=== PATIENT | female | born 1940 | race Caucasian/White ===

== ENCOUNTER 2019-05-18 15:45 | Outpatient (CLI) | payer MEDICARE, MEDICAID | END 2019-05-18 15:46 | disposition short-term general hospital (02) | LOC: EMS 15:45 | PROVIDERS: ATTEND Surgery | DX: R07.9 Chest pain, unspecified (principal); R06.02 Shortness of breath; R11.0 Nausea; R61 Generalized hyperhidrosis | CPT/HCPCS: A0425; A0427 ==

== ENCOUNTER 2019-05-29 03:15 | Emergency (ER) | payer MEDICARE, MEDICAID ==
--- NOTE | 2019-05-29 03:48 | ED Physician Documentation ---
PD HPI DYSPNEA - Stated complaint Stated Complaint: CP/SOA - Chief complaint Chief Complaint: Resp - History obtained from History obtained from: Patient, EMS - History of Present Illness Timing - onset: Yesterday Timing - onset during: Rest Pain level now: 2 Improved by: O2, Inhaler/neb (given en route by medics (duoneb)), Rest Worsened by: Exertion, Coughing Associated symptoms: Cough, Wheezing, Chest pain / discomfort (distinctly related to coughing (only with coughing)). No: Fever Recently seen: Admitted (inpatient at [facility] earlier this month for chest pain, found to be anemic and was transfused. patient does not recall these details, but I was able to have records faxed from [facility] (they only faxed intake)) - Additional information Additional information: Patient is brought in by ambulance. Patient complains of dyspnea with increasing cough that has been productive of yellow sputum. This has been gradually worsening since yesterday. She also describes brief episodes of midline chest pain, which she says is only present when she coughs. Medics found patient to have a pulse ox of 94% on room air on their arrival, which increased to 98% with duoneb. staff at [facility] gave patient 325mg ASA prior to EMS arrival. Review of Systems Constitutional: denies: Fever, Chills, Sweats Cardiac: reports: Chest pain / pressure. denies: Palpitations, Pedal edema Respiratory: reports: Dyspnea, Cough, Wheezing. denies: Hemoptysis GI: reports: Reviewed and negative : denies: Dysuria, Frequency Musculoskeletal: denies: Back pain Neurologic: denies: Generalized weakness, Headache PD PAST MEDICAL HISTORY - Past Medical History Past Medical History: Yes Cardiovascular: Hypertension, High cholesterol, Coronary artery disease, [place], Atrial fibrillation Respiratory: Asthma, COPD Neuro: Dementia Endocrine/Autoimmune: HyPOthyroidism GI: Hiatal hernia : Incontinence HEENT: None Psych: Depression Musculoskeletal: Osteoarthritis, Fibromyalgia, Other Derm: None Other Past Medical History: spinal stenosis - Present Medications Home Medications: Ambulatory Orders Medication Instructions Recorded Confirmed Acetaminophen [Tylenol] 325 mg PO PRN PRN 05/29/19 05/29/19 Albuterol Sulf [Ventolin Hfa 1 - 2 puffs INH Q4HR PRN #1 inhaler 05/29/19 Inhaler] Apixaban [Eliquis] 5 mg PO BID 05/29/19 05/29/19 Budesonide/Formoterol Fumarate 2 puffs INH BID 05/29/19 05/29/19 [Symbicort 160-4.5 Mcg Inhaler] Calcium Carbonate [Tums (Calcium 1,000 mg PO BID PRN 05/29/19 05/29/19 Carbonate 500mg)] Famotidine 20 mg PO BID 05/29/19 05/29/19 Levothyroxine [Synthroid] 25 mg PO DAILY 05/29/19 05/29/19 Metoprolol Succinate 25 mg PO DAILY 05/29/19 05/29/19 Oxybutynin Chloride [Ditropan Xl] 10 mg PO DAILY 05/29/19 05/29/19 Pregabalin 75 mg PO BID 05/29/19 05/29/19 Sennosides [Senna Laxative] 8.6 mg PO BID PRN 05/29/19 05/29/19 Simvastatin 10 mg PO QPM 05/29/19 05/29/19 Umeclidinium [place] [Incruse 1 puffs INH DAILY 05/29/19 05/29/19 Ellipta] Venlafaxine HCl [Venlafaxine HCl 225 mg PO DAILY 05/29/19 05/29/19 ER] predniSONE [Prednisone] 40 mg PO DAILY 3 Days #6 tablet 05/29/19 - Allergies Allergies/Adverse Reactions: Allergies Allergy/AdvReac Type Severity Reaction Status Date / Time adhesive Allergy Unknown Verified 05/29/19 03:52 alendronate sodium Allergy Unknown Verified 05/29/19 04:06 cephalexin Allergy Unknown Verified 05/29/19 04:06 chlorhexidine Allergy Unknown Verified 05/29/19 04:06 ciprofloxacin [From Cipro] Allergy Unknown Verified 05/29/19 04:06 erythromycin base Allergy Unknown Verified 05/29/19 04:06 ether Allergy Unknown Verified 05/29/19 04:06 fentanyl Allergy Unknown Verified 05/29/19 04:06 hydromorphone Allergy Unknown Verified 05/29/19 04:06 Iodinated Contrast Media Allergy Unknown Verified 05/29/19 03:52 methadone Allergy Unknown Verified 05/29/19 04:06 nitrofurantoin Allergy Unknown Verified 05/29/19 04:06 Penicillins Allergy Unknown Verified 05/29/19 03:52 strawberry Allergy Unknown Verified 05/29/19 04:06 Sulfa (Sulfonamide Allergy Unknown Verified 05/29/19 04:06 Antibiotics) zolpidem Allergy Unknown Verified 05/29/19 04:06 streptomycin AdvReac Unknown Verified 05/29/19 04:08 Norflurane-Pentaflouropropane Allergy Unknown Uncoded 05/29/19 04:08 - Social History Does the pt smoke?: No Smoking Status: Former smoker Does the pt drink ETOH?: No Does the pt have substance abuse?: No - Immunizations Immunizations are current?: No Immunizations: TDAP >10years/unknown PD ED PE NORMAL - Vitals Vital signs reviewed: Yes - General General: Alert and oriented X 3, No acute distress, Well developed/nourished - HEENT HEENT: Moist mucous membranes - Neck Neck: Supple, no meningeal sign - Cardiac Cardiac: RRR, No murmur - Respiratory Respiratory: No respiratory distress - Abdomen Abdomen: Soft, Non tender, Other (soft, nontender umbilical hernia) - Derm Derm: Normal color, Warm and dry - Extremities Extremities: No edema PD ED PE EXPANDED - Respiratory Respiratory: Rhonchi (initially had scattered course rhonchi but these cleared with deep coughing and subsequently her lungs were clear bilaterally, mildly decreased breath sounds bilateral bases) Results - Vitals Vitals: Oxygen O2 Source Room air - EKG (time done) No standard instances Rate: Rate (enter#) (76) Rhythm: NSR [place]: Normal Intervals: Normal CT QRS: Normal Ischemia: Normal ST segments - Labs Labs: Laboratory Tests 05/29/19 05/29/19 05/29/19 03:15 03:15 04:15 WBC 12.8 H RBC 3.51 L Hgb 10.1 L Hct 32.2 L MCV 91.7 MCH 28.8 MCHC 31.4 L RDW 15.6 H Plt Count 219 MPV 10.2 Neut # (Auto) 7.9 H Lymph # (Auto) 3.4 [place] # (Auto) 1.1 H Eos # (Auto) 0.3 Baso # (Auto) 0.1 Absolute Nucleated RBC 0.00 Nucleated RBC % 0.0 PT 16.6 H INR 1.5 H APTT 57.0 H Sodium 141 Potassium 3.9 Chloride 108 Carbon Dioxide 23 Anion Gap 10.0 BUN 34 H Creatinine 0.9 Estimated GFR (MDRD) 61 L Glucose 109 H Calcium 9.2 Magnesium 2.3 Total Bilirubin 0.4 AST 26 ALT 26 Alkaline Phosphatase 66 Troponin I High Sens B-Natriuretic Peptide Total Protein 7.1 Albumin 3.7 Globulin 3.4 Albumin/Globulin Ratio 1.1 Lipase 37 Urine Color Urine Clarity Urine pH Ur Specific [place] Urine Protein Urine Glucose (UA) Urine Ketones Urine Occult Blood Urine Nitrite Urine Bilirubin Urine Urobilinogen Ur Leukocyte Esterase Urine RBC Urine WBC Ur Squamous Epith Cells Urine Bacteria Ur Microscopic Review Urine Culture Comments 05/29/19 05/29/19 05/29/19 04:15 04:19 04:40 WBC RBC Hgb Hct MCV MCH MCHC RDW Plt Count MPV Neut # (Auto) Lymph # (Auto) [place] # (Auto) Eos # (Auto) Baso # (Auto) Absolute Nucleated RBC Nucleated RBC % PT INR APTT Sodium Potassium Chloride Carbon Dioxide Anion Gap BUN Creatinine Estimated GFR (MDRD) Glucose Calcium Magnesium Total Bilirubin AST ALT Alkaline Phosphatase Troponin I High Sens 4.4 B-Natriuretic Peptide 85 Total Protein Albumin Globulin Albumin/Globulin Ratio Lipase Urine Color YELLOW Urine Clarity CLEAR Urine pH 6.0 Ur Specific [place] 1.020 Urine Protein NEGATIVE Urine Glucose (UA) NEGATIVE Urine Ketones NEGATIVE Urine Occult Blood SMALL H Urine Nitrite NEGATIVE Urine Bilirubin NEGATIVE Urine Urobilinogen 0.2 (NORMAL) Ur Leukocyte Esterase NEGATIVE Urine RBC 0-5 Urine WBC 0-3 Ur Squamous Epith Cells RARE Squamous Urine Bacteria Rare Ur Microscopic Review INDICATED Urine Culture Comments NOT INDICATED - Rads (name of study) chest xray Radiology: Prelim report reviewed, See rad report PD MEDICAL DECISION MAKING - ED course Complexity details: reviewed old records, reviewed results, re-evaluated patient, considered differential, d/w patient ED course: gradually improved during ED stay, with less subjective dyspnea (not in any respiratory distress on exam) and significantly less cough. she declined robitussin AC, says she doesnt want any medications that have addiction potential. she is in NAD and speaking in full sentences prior to discharge. test results are reassuring and do not reveal nor suggest need for further testing nor admission. suspect bronchitis causing asthma/COPE flare (bronchospasm) Departure - Departure Disposition: 01 Home, Self Care Clinical Impression: Bronchitis with bronchospasm Condition: Good Instructions: ED Bronchitis Asthmatic Prescriptions: Albuterol Sulf [Ventolin Hfa Inhaler] 1 - 2 puffs INH Q4HR PRN #1 inhaler PRN Reason: Shortness Of Air/Wheezing predniSONE [Prednisone] 40 mg PO DAILY 3 Days #6 tablet Discharge Date/Time: 05/29/19 11:01
[2019-05-29 04:33] LABS: BASOPHILS # (AUTO) 0.1 10^3/uL (0.0-0.1); BASOPHILS % (AUTO) 0.6 %; EOSINOPHILS # (AUTO) 0.3 10^3/uL (0.0-0.7); HGB - HEMOGLOBIN 10.1 g/dL (12.0-16.0); LYMPHOCYTES # (AUTO) 3.4 10^3/uL (1.5-3.5); LYMPHOCYTES % (AUTO) 26.5 %; MEAN CORPUSCULAR HEMOGLOBIN 28.8 pg (27.0-31.0); MEAN CORPUSCULAR HGB CONC 31.4 g/dL (32.0-36.0); MEAN CORPUSCULAR VOLUME 91.7 fL (81.0-99.0); MEAN PLATELET VOLUME 10.2 fL (7.9-10.8); MONOCYTES # (AUTO) 1.1 10^3/uL (0.0-1.0); MONOCYTES % (AUTO) 8.5 %; NEUTROPHILS # (AUTO) 7.9 10^3/uL (1.5-6.6); NEUTROPHILS % (AUTO) 61.9 %; PLT - PLATELET COUNT 219 10^3/uL (130-450); RED BLOOD COUNT 3.51 10^6/uL (4.20-5.40); RED CELL DISTRIBUTION WIDTH 15.6 % (12.0-15.0); WHITE BLOOD COUNT 12.8 x10^3/uL (4.8-10.8)
[2019-05-29 04:35] LABS: INR 1.5 (0.8-1.2); PT - PROTHROMBIN TIME 16.6 secs (9.9-12.6)
--- NOTE | 2019-05-29 04:45 | XRAY Report ---
Reason: cough, dyspnea Procedure Date: 05/29/2019 Accession Number: [id number] / [id number] Procedure: XR - Chest 2 View X-Ray CPT Code: 51465 FULL RESULT: EXAM: CHEST RADIOGRAPHY EXAM DATE: 05/29/2019 04:34 AM. CLINICAL HISTORY: Cough, dyspnea. COMPARISON: None. TECHNIQUE: 2 views. FINDINGS: Lungs/Pleura: No focal opacities evident. No pulmonary edema. No pleural effusion. No pneumothorax. Mild to moderate elevation of right hemidiaphragm. Mediastinum: Heart and mediastinal contours are unremarkable. Atherosclerosis of aortic arch. Other: Implanted medical research associate with lead tip projecting at right mediastinum. IMPRESSION: 1. No evidence of acute cardiopulmonary process. 2. Mild to moderate elevation of right hemidiaphragm. RADIA
[2019-05-29 04:51] LABS: ALBUMIN 3.7 g/dL (3.2-5.5); ALBUMIN/GLOBULIN RATIO 1.1 (1.0-2.2); BILIRUBIN,TOTAL 0.4 mg/dL (0.2-1.0); CALCIUM 9.2 mg/dL (8.5-10.3); CREATININE 0.9 mg/dL (0.4-1.0); MAGNESIUM 2.3 mg/dL (1.7-2.8); TOTAL PROTEIN 7.1 g/dL (6.7-8.2)
[2019-05-29] MEDS ORDERED: DEXAMETHASONE 10 MG/ML VIAL IVP STA (05:08)
[2019-05-29] MEDS ORDERED: ALBUTEROL NEB 2.5 MG/3 ML INH STA (05:12)
[2019-05-29] MEDS ORDERED: KETOROLAC 15 MG/ML VIAL IVP STA (05:13)
[2019-05-29 05:35] LABS: BILIRUBIN,URINE NEGATIVE (NEGATIVE); GLUCOSE, URINE (UA) NEGATIVE (NEGATIVE); KETONES,URINE (UA) NEGATIVE (NEGATIVE); LEUKOCYTE ESTERASE, URINE NEGATIVE (NEGATIVE); NITRITE,URINE NEGATIVE (NEGATIVE); OCCULT BLOOD,URINE SMALL (NEGATIVE); PROTEIN,URINE NEGATIVE (NEGATIVE); UROBILINOGEN,URINE 0.2 (NORMAL) E.U./dL (NORMAL)
[2019-05-29 05:46] LABS: CLARITY,URINE CLEAR (CLEAR); RBC,URINE 0-5 /HPF (0-5); SQUAMOUS EPITHELIAL CELL,UR RARE Squamous (<= Few)
[2019-05-29 05:47] LABS: BACTERIA,URINE Rare /HPF (None Seen)
[2019-05-29 10:08] VITALS: BP 107/44
== END 2019-05-29 11:01 | disposition home or self-care (01) ==
LOC: EDUNIT# → ED 03:15
DX: J20.9 Acute bronchitis, unspecified (principal); J44.0 Chronic obstructive pulmonary disease with (acute) lower respiratory infection; Z87.891 Personal history of nicotine dependence; K42.9 Umbilical hernia without obstruction or gangrene; I10 Essential (primary) hypertension; I48.91 Unspecified atrial fibrillation; Z79.01 Long term (current) use of anticoagulants; I25.10 Atherosclerotic heart disease of native coronary artery without angina pectoris; I25.2 Old myocardial infarction; F03.90 Unspecified dementia, unspecified severity, without behavioral disturbance, psychotic disturbance, mood disturbance, and anxiety
CPT/HCPCS: 36415; 71046; 80053; 81001; 81003; 83605; 83690; 83735; 83880; 84484; 85025; 85610; 85730; 87086; 93005; 94640; 96374; 99284

== ENCOUNTER 2019-07-01 17:26 | Outpatient (CLI) | payer MEDICARE, MEDICAID | END 2019-07-01 17:27 | disposition critical access hospital (66) | LOC: EMS 17:26 | PROVIDERS: ATTEND Surgery | DX: R46.89 Other symptoms and signs involving appearance and behavior (principal) | CPT/HCPCS: A0425; A0429 ==

== ENCOUNTER 2019-07-01 17:46 | Emergency (ER) | payer MEDICARE, MEDICAID ==
[2019-07-01] MEDS ORDERED: ACETAMINOPHEN 325 MG TABLET PO STA (18:02)
--- NOTE | 2019-07-01 18:04 | ED Physician Documentation ---
History of Present Illness - Stated complaint Stated Complaint: MHE - History obtained from History obtained from: Patient - History of Present Illness Timing: Today (78-year-old woman presents from [facility] assisted living facility. Reportedly became aggressive with staff there today and kicked to people. Her story is that she became agitated because they were not taking good care of some other folks there and admits to doing this. She is a reasonable historian but not great. It is clear there is some elements of dementia going on. She has no specific complaints other than ongoing back pain for which she would like something. When I asked her if she has any places to go other than [facility], she says she could go live with her parents, her age makes this questionable. I do not know if they are actually alive.) Review of Systems Unable to obtain: Dementia PD PAST MEDICAL HISTORY - Past Medical History Cardiovascular: Hypertension, High cholesterol, Coronary artery disease, [place], Atrial fibrillation Respiratory: Asthma, COPD Neuro: Dementia Endocrine/Autoimmune: HyPOthyroidism GI: Hiatal hernia : Incontinence HEENT: None Psych: Depression Musculoskeletal: Osteoarthritis, Fibromyalgia, Other Derm: None - Present Medications Home Medications: Ambulatory Orders Medication Instructions Recorded Confirmed Acetaminophen [Tylenol] 325 mg PO PRN PRN 05/29/19 05/29/19 Albuterol Sulf [Ventolin Hfa 1 - 2 puffs INH Q4HR PRN #1 inhaler 05/29/19 Inhaler] Apixaban [Eliquis] 5 mg PO BID 05/29/19 05/29/19 Budesonide/Formoterol Fumarate 2 puffs INH BID 05/29/19 05/29/19 [Symbicort 160-4.5 Mcg Inhaler] Calcium Carbonate [Tums (Calcium 1,000 mg PO BID PRN 05/29/19 05/29/19 Carbonate 500mg)] Famotidine 20 mg PO BID 05/29/19 05/29/19 Levothyroxine [Synthroid] 25 mg PO DAILY 05/29/19 05/29/19 Metoprolol Succinate 25 mg PO DAILY 05/29/19 05/29/19 Oxybutynin Chloride [Ditropan Xl] 10 mg PO DAILY 05/29/19 05/29/19 Pregabalin 75 mg PO BID 05/29/19 05/29/19 Sennosides [Senna Laxative] 8.6 mg PO BID PRN 05/29/19 05/29/19 Simvastatin 10 mg PO QPM 05/29/19 05/29/19 Umeclidinium [place] [Incruse 1 puffs INH DAILY 05/29/19 05/29/19 Ellipta] Venlafaxine HCl [Venlafaxine HCl 225 mg PO DAILY 05/29/19 05/29/19 ER] predniSONE [Prednisone] 40 mg PO DAILY 3 Days #6 tablet 05/29/19 Haloperidol [Haldol] 2 mg PO Q8H PRN #60 tablet 07/01/19 risperiDONE [RisperDAL] 0.25 mg PO HS #30 tablet 07/01/19 - Allergies Allergies/Adverse Reactions: Allergies Allergy/AdvReac Type Severity Reaction Status Date / Time adhesive Allergy Unknown Verified 07/01/19 18:10 alendronate sodium Allergy Unknown Verified 07/01/19 18:10 cephalexin Allergy Unknown Verified 07/01/19 18:10 chlorhexidine Allergy Unknown Verified 07/01/19 18:10 ciprofloxacin [From Cipro] Allergy Unknown Verified 07/01/19 18:10 erythromycin base Allergy Unknown Verified 07/01/19 18:10 ether Allergy Unknown Verified 07/01/19 18:10 fentanyl Allergy Unknown Verified 07/01/19 18:10 hydromorphone Allergy Unknown Verified 07/01/19 18:10 Iodinated Contrast Media Allergy Unknown Verified 07/01/19 18:10 methadone Allergy Unknown Verified 07/01/19 18:10 nitrofurantoin Allergy Unknown Verified 07/01/19 18:10 Penicillins Allergy Unknown Verified 07/01/19 18:10 strawberry Allergy Unknown Verified 07/01/19 18:10 Sulfa (Sulfonamide Allergy Unknown Verified 07/01/19 18:10 Antibiotics) zolpidem Allergy Unknown Verified 07/01/19 18:10 streptomycin AdvReac Unknown Verified 07/01/19 18:10 Norflurane-Pentaflouropropane Allergy Unknown Uncoded 07/01/19 18:10 - Social History Does the pt smoke?: No Smoking Status: Former smoker Does the pt drink ETOH?: No Does the pt have substance abuse?: No - Immunizations Immunizations are current?: No Immunizations: TDAP >10years/unknown PD ED PE NORMAL - Vitals Vital signs reviewed: Yes - General General: Other (She is alert and oriented to person, she knows she is in the hospital and seems to have some recollection of why. She cannot come up with the month or the year.) - HEENT HEENT: PERRL, EOMI - Neck Neck: Supple, no meningeal sign, No bony TTP - Cardiac Cardiac: RRR, No murmur - Respiratory Respiratory: No respiratory distress, Clear bilaterally - Abdomen Abdomen: Normal bowel sounds, Soft, Non tender - Back Back: No CVA TTP, No spinal TTP - Derm Derm: Normal color, Warm and dry - Extremities Extremities: No edema, No calf tenderness / cord - Neuro Neuro: No motor deficit, No sensory deficit Eye Opening: Spontaneous Motor: Obeys Commands Verbal: Confused GCS Score: 14 Results - Vitals Vitals: Vital Signs - 24 hr 07/01/19 18:03 Temperature 37.0 C Heart Rate 91 Respiratory 20 Rate Blood Pressure 123/68 O2 Saturation 96 Oxygen O2 Source Room air - EKG (time done) 1818 Rate: Rate (enter#) (88) Rhythm: NSR [place]: Normal Intervals: Normal [place] QRS: Normal Ischemia: Normal ST segments - Labs Labs: Laboratory Tests 07/01/19 07/01/19 07/01/19 18:21 18:21 18:21 WBC 9.6 RBC 4.03 L Hgb 11.3 L Hct 36.3 L MCV 90.1 MCH 28.0 MCHC 31.1 L RDW 15.8 H Plt Count 236 MPV 9.5 Neut # (Auto) 6.2 Lymph # (Auto) 1.7 [place] # (Auto) 1.2 H Eos # (Auto) 0.4 Baso # (Auto) 0.1 Absolute Nucleated RBC 0.00 Nucleated RBC % 0.0 PT 18.2 H INR 1.6 H Sodium 139 Potassium 3.9 Chloride 103 Carbon Dioxide 24 Anion Gap 12.0 BUN 21 H Creatinine 0.9 Estimated GFR (MDRD) 61 L Glucose 92 Calcium 9.1 Magnesium 2.5 Total Bilirubin 0.3 AST 29 ALT 22 Alkaline Phosphatase 88 Total Protein 8.0 Albumin 4.2 Globulin 3.8 Albumin/Globulin Ratio 1.1 Lipase 32 TSH Urine Color Urine Clarity Urine pH Ur Specific [place] Urine Protein Urine Glucose (UA) Urine Ketones Urine Occult Blood Urine Nitrite Urine Bilirubin Urine Urobilinogen Ur Leukocyte Esterase Urine RBC Urine WBC Ur Squamous Epith Cells Urine Bacteria Ur Microscopic Review Urine Culture Comments Salicylates < 6.0 Urine Opiates Screen Ur Oxycodone Screen Urine Methadone Screen Ur Propoxyphene Screen Acetaminophen < 10 L Ur Barbiturates Screen Ur Tricyclics Screen Ur Phencyclidine Scrn Ur Amphetamine Screen U Methamphetamines Scrn U Benzodiazepines Scrn Urine Cocaine Screen U Cannabinoids Screen Ethyl Alcohol < 5.0 07/01/19 07/01/19 07/01/19 18:21 18:40 18:45 WBC RBC Hgb Hct MCV MCH MCHC RDW Plt Count MPV Neut # (Auto) Lymph # (Auto) [place] # (Auto) Eos # (Auto) Baso # (Auto) Absolute Nucleated RBC Nucleated RBC % PT INR Sodium Potassium Chloride Carbon Dioxide Anion Gap BUN Creatinine Estimated GFR (MDRD) Glucose Calcium Magnesium Total Bilirubin AST ALT Alkaline Phosphatase Total Protein Albumin Globulin Albumin/Globulin Ratio Lipase TSH 3.40 Urine Color YELLOW Urine Clarity CLEAR Urine pH 6.0 Ur Specific [place] 1.010 Urine Protein NEGATIVE Urine Glucose (UA) NEGATIVE Urine Ketones NEGATIVE Urine Occult Blood SMALL H Urine Nitrite NEGATIVE Urine Bilirubin NEGATIVE Urine Urobilinogen 0.2 (NORMAL) Ur Leukocyte Esterase NEGATIVE Urine RBC 0-5 Urine WBC 0-3 Ur Squamous Epith Cells FEW Squamous Urine Bacteria None Seen Ur Microscopic Review INDICATED Urine Culture Comments NOT INDICATED Salicylates Urine Opiates Screen NEGATIVE Ur Oxycodone Screen NEGATIVE Urine Methadone Screen NEGATIVE Ur Propoxyphene Screen NEGATIVE Acetaminophen Ur Barbiturates Screen NEGATIVE Ur Tricyclics Screen NEGATIVE Ur Phencyclidine Scrn NEGATIVE Ur Amphetamine Screen NEGATIVE U Methamphetamines Scrn NEGATIVE U Benzodiazepines Scrn POSITIVE H Urine Cocaine Screen NEGATIVE U Cannabinoids Screen NEGATIVE Ethyl Alcohol PD MEDICAL DECISION MAKING - ED course ED course: She was very cooperative and pleasant here, required no medication here. Tele- psychiatry evaluation was done with outlined recommendations. Departure - Departure Disposition: 01 Home, Self Care Clinical Impression: Dementia with behavioral disturbance Qualifiers: Dementia type: Alzheimer's disease Alzheimer's disease onset: unspecified onset Qualified Code(s): G30.9 - Alzheimer's disease, unspecified; F02.81 - Dementia in other diseases classified elsewhere with behavioral disturbance Instructions: ED Dementia Alzheimer, ED Dementia Caregiver Support Prescriptions: Haloperidol [Haldol] 2 mg PO Q8H PRN #60 tablet PRN Reason: Agitation risperiDONE [RisperDAL] 0.25 mg PO HS #30 tablet Comments: Tele psychiatrist saw her tonight and recommended Risperdal was 0.25 mg at night and Haldol, 2 mg every 8 hours as needed for agitation. We gave her the Resporal tonight. Prescriptions for both are attached as well. Return anytime for new or worsening symptoms. She needs to follow-up with her primary care physician as soon as possible for recheck and refills.
[2019-07-01 18:10] VITALS: BP 123/68
[2019-07-01 18:25] LABS: BASOPHILS # (AUTO) 0.1 10^3/uL (0.0-0.1); BASOPHILS % (AUTO) 0.8 %; EOSINOPHILS # (AUTO) 0.4 10^3/uL (0.0-0.7); EOSINOPHILS % (AUTO) 3.9 %; HGB - HEMOGLOBIN 11.3 g/dL (12.0-16.0); LYMPHOCYTES # (AUTO) 1.7 10^3/uL (1.5-3.5); LYMPHOCYTES % (AUTO) 17.3 %; MEAN CORPUSCULAR HGB CONC 31.1 g/dL (32.0-36.0); MEAN CORPUSCULAR VOLUME 90.1 fL (81.0-99.0); MEAN PLATELET VOLUME 9.5 fL (7.9-10.8); MONOCYTES # (AUTO) 1.2 10^3/uL (0.0-1.0); MONOCYTES % (AUTO) 12.7 %; NEUTROPHILS # (AUTO) 6.2 10^3/uL (1.5-6.6); NEUTROPHILS % (AUTO) 64.6 %; PLT - PLATELET COUNT 236 10^3/uL (130-450); RED BLOOD COUNT 4.03 10^6/uL (4.20-5.40); RED CELL DISTRIBUTION WIDTH 15.8 % (12.0-15.0); WHITE BLOOD COUNT 9.6 x10^3/uL (4.8-10.8)
[2019-07-01 18:32] LABS: INR 1.6 (0.8-1.2); PT - PROTHROMBIN TIME 18.2 secs (9.9-12.6)
[2019-07-01 18:43] LABS: ACETAMINOPHEN < 10 ug/mL (10-30); ALBUMIN 4.2 g/dL (3.2-5.5); ALBUMIN/GLOBULIN RATIO 1.1 (1.0-2.2); ALKALINE PHOSPHATASE 88 IU/L (42-121); ALT ALANINE AMINOTRANSFERASE 22 IU/L (10-60); AST ASPARTATE AMINOTRANSFERASE 29 IU/L (10-42); BILIRUBIN,TOTAL 0.3 mg/dL (0.2-1.0); BUN - BLOOD UREA NITROGEN 21 mg/dL (6-20); CALCIUM 9.1 mg/dL (8.5-10.3); CARBON DIOXIDE - CO2 24 mmol/L (21-32); CHLORIDE 103 mmol/L (101-111); CREATININE 0.9 mg/dL (0.4-1.0); GFR - MDRD 61 (>89); GLUCOSE 92 mg/dL (70-100); LIPASE 32 U/L (22-51); MAGNESIUM 2.5 mg/dL (1.7-2.8); SALICYLATE < 6.0 mg/dL; SODIUM 139 mmol/L (135-145)
[2019-07-01 18:55] LABS: MUDS CUTOFF CONCENTRATIONS CUTOFF CONC BELOW:
[2019-07-01 19:08] LABS: AMPHETAMINE SCREEN,URINE NEGATIVE (NEGATIVE); BENZODIAZEPINES SCREEN, URINE POSITIVE (NEGATIVE); COCAINE SCREEN URINE NEGATIVE (NEGATIVE); METHADONE SCREEN, URINE NEGATIVE (NEGATIVE); METHAMPHETAMINES SCREEN, URINE NEGATIVE (NEGATIVE); OPIATE SCREEN, URINE NEGATIVE (NEGATIVE); OXYCODONE SCREEN, URINE NEGATIVE (NEGATIVE); PROPOXYPHENE SCREEN, URINE NEGATIVE (NEGATIVE); TRICYCLIC ANTIDEPRESSANT,URINE NEGATIVE (NEGATIVE)
[2019-07-01 19:37] LABS: BILIRUBIN,URINE NEGATIVE (NEGATIVE); GLUCOSE, URINE (UA) NEGATIVE (NEGATIVE); KETONES,URINE (UA) NEGATIVE (NEGATIVE); LEUKOCYTE ESTERASE, URINE NEGATIVE (NEGATIVE); NITRITE,URINE NEGATIVE (NEGATIVE); OCCULT BLOOD,URINE SMALL (NEGATIVE); PROTEIN,URINE NEGATIVE (NEGATIVE); UROBILINOGEN,URINE 0.2 (NORMAL) E.U./dL (NORMAL)
[2019-07-01 19:38] LABS: CLARITY,URINE CLEAR (CLEAR)
[2019-07-01 19:49] LABS: BACTERIA,URINE None Seen /HPF (None Seen); RBC,URINE 0-5 /HPF (0-5); SQUAMOUS EPITHELIAL CELL,UR FEW Squamous (<= Few)
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
[2019-07-01] MEDS ORDERED: risperiDONE 0.25 MG TABLET PO STA (22:41)
== END 2019-07-02 00:07 | disposition home or self-care (01) ==
LOC: EDUNIT# → ED 17:46
DX: G30.9 Alzheimer's disease, unspecified (principal); F02.81 Dementia in other diseases classified elsewhere, unspecified severity, with behavioral disturbance; I10 Essential (primary) hypertension; I48.91 Unspecified atrial fibrillation; Z79.01 Long term (current) use of anticoagulants; Z87.891 Personal history of nicotine dependence
CPT/HCPCS: 36415; 80053; 81001; 83690; 83735; 84443; 85025; 85610; 93005; 99281; 99283; A9270; G0425; 80306; 80307; 80320; 80329; 81003; 87086

== ENCOUNTER 2019-07-02 00:10 | Outpatient (CLI) | payer MEDICARE, MEDICAID | END 2019-07-02 00:11 | disposition home or self-care (01) | LOC: EMS 00:10 | PROVIDERS: ATTEND Surgery | DX: F03.90 Unspecified dementia, unspecified severity, without behavioral disturbance, psychotic disturbance, mood disturbance, and anxiety (principal) | CPT/HCPCS: A0425; A0428 ==

== ENCOUNTER 2019-07-16 08:00 | Outpatient (CLI) | payer MEDICARE, MEDICAID ==
[2019-07-16 17:15] LABS: BILIRUBIN,URINE NEGATIVE (NEGATIVE); GLUCOSE, URINE (UA) NEGATIVE (NEGATIVE); KETONES,URINE (UA) NEGATIVE (NEGATIVE); LEUKOCYTE ESTERASE, URINE NEGATIVE (NEGATIVE); NITRITE,URINE NEGATIVE (NEGATIVE); OCCULT BLOOD,URINE MODERATE (NEGATIVE); PROTEIN,URINE TRACE mg/dL (NEGATIVE); UROBILINOGEN,URINE 0.2 (NORMAL) E.U./dL (NORMAL)
[2019-07-16 17:19] LABS: CLARITY,URINE HAZY (CLEAR)
[2019-07-16 17:36] LABS: AMORPHOUS SEDIMENT,UR Rare /LPF; BACTERIA,URINE Rare /HPF (None Seen); RBC,URINE 0-5 /HPF (0-5); SQUAMOUS EPITHELIAL CELL,UR FEW Squamous (<= Few)
== END 2019-07-16 23:59 | disposition home or self-care (01) ==
LOC: LAB.R 08:00
PROVIDERS: ATTEND Internal Medicine
DX: N39.0 Urinary tract infection, site not specified (principal)
CPT/HCPCS: 81001; 81003; 87086

== ENCOUNTER 2019-07-18 15:34 | Outpatient (CLI) | payer MEDICARE, MEDICAID | END 2019-07-18 15:35 | disposition critical access hospital (66) | LOC: EMS 15:34 | PROVIDERS: ATTEND Surgery | DX: R41.0 Disorientation, unspecified (principal); R52 Pain, unspecified | CPT/HCPCS: A0425; A0429 ==

== ENCOUNTER 2019-07-18 15:56 | Emergency (ER) | payer MEDICARE, MEDICAID ==
[2019-07-18 16:05] VITALS: BP 134/54
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
[2019-07-18] MEDS: risperiDONE 0.25 MG TABLET PO STA (16:11)
== END 2019-07-18 18:17 | disposition home or self-care (01) ==
LOC: EDUNIT# → ED 15:56
DX: F03.91 Unspecified dementia, unspecified severity, with behavioral disturbance (principal); I10 Essential (primary) hypertension; Z87.891 Personal history of nicotine dependence
CPT/HCPCS: 99283; 99285; A9270

== ENCOUNTER 2019-09-10 21:56 | Outpatient (CLI) | payer MEDICARE, MEDICAID | END 2019-09-10 21:57 | disposition critical access hospital (66) | LOC: EMS 21:56 | PROVIDERS: ATTEND Surgery | DX: R07.9 Chest pain, unspecified (principal) | CPT/HCPCS: A0425; A0429 ==

== ENCOUNTER 2019-09-10 22:11 | Emergency (ER) | payer MEDICARE, MEDICAID ==
--- NOTE | 2019-09-10 22:47 | ED Physician Documentation ---
History of Present Illness - Stated complaint Stated Complaint: CHEST PAIN/ L SHOULDER PN - Chief complaint Chief Complaint: Cardiac - History obtained from History obtained from: Patient (The patient is a very pleasant 78-year-old female who presents with a chief complaint of chest pain while she was at the senior living. She denies any chest pain currently and she is asking to be discharged home. The patient reports that the nurse at the senior living sent her to the emergency department to be evaluated she does report a history of coronary artery disease with one heart attack she denies having CABG or any stent placement.She denies any history of pulmonary embolism or DVT she denies any syncopal episodes today she denies any chest pain currently or shortness of breath or hemoptysis or lower extremity swelling she reports that she ambulates daily with a walker.) Review of Systems Constitutional: reports: Reviewed and negative Eyes: reports: Reviewed and negative Ears: reports: Reviewed and negative Nose: reports: Reviewed and negative Throat: reports: Reviewed and negative Cardiac: reports: Chest pain / pressure Respiratory: reports: Reviewed and negative GI: reports: Reviewed and negative : reports: Reviewed and negative Skin: reports: Reviewed and negative Musculoskeletal: reports: Reviewed and negative Neurologic: reports: Reviewed and negative Psychiatric: reports: Reviewed and negative Endocrine: reports: Reviewed and negative Immunocompromised: reports: Reviewed and negative PD PAST MEDICAL HISTORY - Past Medical History Past Medical History: No Cardiovascular: Hypertension, High cholesterol, Coronary artery disease, [place], Atrial fibrillation Respiratory: Asthma, COPD Neuro: Dementia Endocrine/Autoimmune: HyPOthyroidism GI: Hiatal hernia : Incontinence HEENT: None Psych: Depression Musculoskeletal: Osteoarthritis, Fibromyalgia, Other Derm: None Other Past Medical History: spinal stenosis, chronic pain - Present Medications Home Medications: Ambulatory Orders Medication Instructions Recorded Confirmed Acetaminophen [Tylenol] 325 mg PO PRN PRN 05/29/19 05/29/19 Apixaban [Eliquis] 5 mg PO BID 05/29/19 05/29/19 Budesonide/Formoterol Fumarate 2 puffs INH BID 05/29/19 05/29/19 [Symbicort 160-4.5 Mcg Inhaler] Famotidine 20 mg PO BID 05/29/19 05/29/19 Levothyroxine [Synthroid] 25 mcg PO DAILY 05/29/19 05/29/19 Metoprolol Succinate 25 mg PO DAILY 05/29/19 05/29/19 Oxybutynin Chloride [Ditropan Xl] 10 mg PO DAILY 05/29/19 05/29/19 Pregabalin 75 mg PO BID 05/29/19 05/29/19 Sennosides [Senna Laxative] 8.6 mg PO BID PRN 05/29/19 05/29/19 Simvastatin 40 mg PO QPM 05/29/19 05/29/19 Umeclidinium [place] [Incruse 1 puffs INH DAILY 05/29/19 05/29/19 Ellipta] Venlafaxine HCl [Venlafaxine HCl 3 tab PO DAILY 05/29/19 05/29/19 ER] haloperidoL [Haldol] 2 mg PO Q8H PRN #60 tablet 07/01/19 risperiDONE [RisperDAL] 0.25 mg PO HS #30 tablet 07/18/19 Aspirin 81 mg PO 09/10/19 LORazepam [Ativan] 1 tab DAILY PRN 09/10/19 09/10/19 - Allergies Allergies/Adverse Reactions: Allergies Allergy/AdvReac Type Severity Reaction Status Date / Time adhesive Allergy Unknown Verified 07/18/19 16:05 alendronate sodium Allergy Unknown Verified 07/18/19 16:05 cephalexin Allergy Unknown Verified 07/18/19 16:05 chlorhexidine Allergy Unknown Verified 07/18/19 16:05 ciprofloxacin [From Cipro] Allergy Unknown Verified 07/18/19 16:05 erythromycin base Allergy Unknown Verified 07/18/19 16:05 ether Allergy Unknown Verified 07/18/19 16:05 fentanyl Allergy Unknown Verified 07/18/19 16:05 hydromorphone Allergy Unknown Verified 07/18/19 16:05 Iodinated Contrast Media Allergy Unknown Verified 07/18/19 16:05 methadone Allergy Unknown Verified 07/18/19 16:05 nitrofurantoin Allergy Unknown Verified 07/18/19 16:05 Penicillins Allergy Unknown Verified 07/18/19 16:05 strawberry Allergy Unknown Verified 07/18/19 16:05 Sulfa (Sulfonamide Allergy Unknown Verified 07/18/19 16:05 Antibiotics) zolpidem Allergy Unknown Verified 07/18/19 16:05 streptomycin AdvReac Unknown Verified 07/18/19 16:05 Norflurane-Pentaflouropropane Allergy Unknown Uncoded 07/18/19 16:05 - Social History Does the pt smoke?: No Smoking Status: Never smoker Does the pt drink ETOH?: No Does the pt have substance abuse?: No - Immunizations Immunizations are current?: No Immunizations: TDAP >10years/unknown PD ED PE NORMAL - Vitals Vital signs reviewed: Yes - General General: Alert and oriented X 3, No acute distress, Well developed/nourished - HEENT HEENT: Atraumatic, PERRL, EOMI, Ears normal - Neck Neck: Supple, no meningeal sign, No JVD, No bruit - Cardiac Cardiac: RRR, No murmur, Strong equal pulses - Respiratory Respiratory: No respiratory distress, Clear bilaterally - Abdomen Abdomen: Normal bowel sounds, Soft, Non tender, Non distended - Back Back: No CVA TTP, No spinal TTP - Derm Derm: Normal color, Warm and dry, No rash - Extremities Extremities: No deformity, No tenderness to palpate, No edema, No calf t enderness / cord - Neuro Neuro: Alert and oriented X 3, certified art therapist 2-12 intact, No motor deficit, No sensory deficit, Normal speech - Psych Psych: Normal mood, Normal affect Results - Vitals Vitals: Vital Signs - 24 hr 09/10/19 09/10/19 09/11/19 22:18 23:30 00:30 Temperature 36.7 C Heart Rate 76 70 72 Respiratory 14 19 18 Rate Blood Pressure 137/59 H 130/63 127/54 L O2 Saturation 96 97 98 Oxygen O2 Source Room air - EKG (time done) 22:15 Rate: Rate (enter#) (73) Rhythm: NSR [place]: LAD Intervals: Normal VT QRS: Normal Ischemia: Normal ST segments Compare to prior EKG: Other (NO STEMI) - Labs Labs: Laboratory Tests 09/10/19 09/10/19 23:04 23:04 WBC 8.8 RBC 3.69 L Hgb 10.7 L Hct 33.0 L MCV 89.4 MCH 29.0 MCHC 32.4 RDW 16.4 H Plt Count 201 MPV 9.4 Neut # (Auto) 5.2 Lymph # (Auto) 2.3 [place] # (Auto) 0.9 Eos # (Auto) 0.3 Baso # (Auto) 0.1 Absolute Nucleated RBC 0.00 Nucleated RBC % 0.0 PT 17.5 H INR 1.6 H APTT 44.6 H Departure - Departure Disposition: 01 Home, Self Care Clinical Impression: Chest pain Qualifiers: Chest pain type: other chest pain Qualified Code(s): R07.89 - Other chest pain Condition: Good Instructions: ED Chest Pain Atypical Unkn Cause Follow-Up: YOUR,DOCTOR [Other] - 09/11/19
--- NOTE | 2019-09-11 00:17 | XRAY Report ---
Reason: CP Procedure Date: 09/10/2019 Accession Number: [id number] / [id number] Procedure: XR - Chest 1 View X-Ray CPT Code: 88643 Final Report FULL RESULT: EXAM: CHEST RADIOGRAPHY EXAM DATE: 09/10/2019 11:02 PM. CLINICAL HISTORY: Chest pain. COMPARISON: CHEST 2 VIEW 05/29/2019 3:57 AM. TECHNIQUE: 1 view. FINDINGS: Lungs/Pleura: Subtle opacity projecting at left mid lung measuring 2.5 cm which appears to be contiguous with/part of left chest wall medical transcriber. Otherwise no focal pulmonary opacities evident. No pleural effusion. No pneumothorax. Stable elevation of right hemidiaphragm. Mediastinum: Stable cardiomediastinal contours. Cardiac silhouette size within normal limits. Atherosclerosis of thoracic aorta. Other: Stable medical transcriber projecting over left upper chest extending to right mediastinum. IMPRESSION: 1. No new cardiopulmonary findings. 2. Stable left chest wall device. 3. Elevation of right hemidiaphragm. RADIA
[2019-09-11 00:40] VITALS: BP 127/54
[2019-09-11 00:42] LABS: BASOPHILS # (AUTO) 0.1 10^3/uL (0.0-0.1); BASOPHILS % (AUTO) 0.7 %; EOSINOPHILS # (AUTO) 0.3 10^3/uL (0.0-0.7); EOSINOPHILS % (AUTO) 3.2 %; HGB - HEMOGLOBIN 10.7 g/dL (12.0-16.0); LYMPHOCYTES # (AUTO) 2.3 10^3/uL (1.5-3.5); LYMPHOCYTES % (AUTO) 25.9 %; MEAN CORPUSCULAR HGB CONC 32.4 g/dL (32.0-36.0); MEAN CORPUSCULAR VOLUME 89.4 fL (81.0-99.0); MEAN PLATELET VOLUME 9.4 fL (7.9-10.8); MONOCYTES # (AUTO) 0.9 10^3/uL (0.0-1.0); MONOCYTES % (AUTO) 10.4 %; NEUTROPHILS # (AUTO) 5.2 10^3/uL (1.5-6.6); NEUTROPHILS % (AUTO) 59.2 %; PLT - PLATELET COUNT 201 10^3/uL (130-450); RED BLOOD COUNT 3.69 10^6/uL (4.20-5.40); RED CELL DISTRIBUTION WIDTH 16.4 % (12.0-15.0); WHITE BLOOD COUNT 8.8 x10^3/uL (4.8-10.8)
[2019-09-11 00:43] LABS: INR 1.6 (0.8-1.2); PARTIAL THROMBOPLASTIN TIME 44.6 secs (24.9-33.3); PT - PROTHROMBIN TIME 17.5 secs (9.9-12.6)
[2019-09-11 00:55] LABS: ALBUMIN 3.5 g/dL (3.2-5.5); ALBUMIN/GLOBULIN RATIO 0.9 (1.0-2.2); BILIRUBIN,TOTAL 0.6 mg/dL (0.2-1.0); CREATININE 0.8 mg/dL (0.4-1.0); TOTAL PROTEIN 7.4 g/dL (6.7-8.2)
== END 2019-09-11 00:49 | disposition home or self-care (01) ==
LOC: EDUNIT# → ED 22:11
DX: I10 Essential (primary) hypertension (principal); F03.90 Unspecified dementia, unspecified severity, without behavioral disturbance, psychotic disturbance, mood disturbance, and anxiety; R07.89 Other chest pain
CPT/HCPCS: 36415; 71045; 80053; 82550; 83690; 83880; 84484; 85025; 85610; 85730; 93005; 99283; 99284

== ENCOUNTER 2019-10-23 17:58 | Outpatient (CLI) | payer MEDICARE, MEDICAID | END 2019-10-23 17:59 | disposition critical access hospital (66) | LOC: EMS 17:58 | PROVIDERS: ATTEND Surgery | DX: R41.82 Altered mental status, unspecified (principal); R50.9 Fever, unspecified; R05 Cough | CPT/HCPCS: A0425; A0427 ==

== ENCOUNTER 2019-10-23 18:16 | Inpatient (IN) | payer MEDICARE, MEDICAID ==
--- NOTE | 2019-10-23 19:47 | ED Physician Documentation ---
History of Present Illness - Stated complaint Stated Complaint: DEC LOC - Chief complaint Chief Complaint: General - History obtained from History obtained from: Other (history obtained from the nurse. patient was brought in by ems, no history is known. the nurse reports that she lives at a [place] [facility], code status is not known currently.) Review of Systems Unable to obtain: AMS PD PAST MEDICAL HISTORY - Past Medical History Cardiovascular: Hypertension, High cholesterol, Coronary artery disease, [place], Atrial fibrillation Respiratory: Asthma, COPD Neuro: Dementia Endocrine/Autoimmune: HyPOthyroidism GI: Hiatal hernia : Incontinence HEENT: None Psych: Depression Musculoskeletal: Osteoarthritis, Fibromyalgia, Other Derm: None - Present Medications Home Medications: Ambulatory Orders Medication Instructions Recorded Confirmed Acetaminophen [Tylenol] 325 mg PO PRN PRN 05/29/19 05/29/19 Apixaban [Eliquis] 5 mg PO BID 05/29/19 05/29/19 Budesonide/Formoterol Fumarate 2 puffs INH BID 05/29/19 05/29/19 [Symbicort 160-4.5 Mcg Inhaler] Famotidine 20 mg PO BID 05/29/19 05/29/19 Levothyroxine [Synthroid] 25 mcg PO DAILY 05/29/19 05/29/19 Metoprolol Succinate 25 mg PO DAILY 05/29/19 05/29/19 Oxybutynin Chloride [Ditropan Xl] 10 mg PO DAILY 05/29/19 05/29/19 Pregabalin 75 mg PO BID 05/29/19 05/29/19 Sennosides [Senna Laxative] 8.6 mg PO BID PRN 05/29/19 05/29/19 Simvastatin 40 mg PO QPM 05/29/19 05/29/19 Umeclidinium [place] [Incruse 1 puffs INH DAILY 05/29/19 05/29/19 Ellipta] Venlafaxine HCl [Venlafaxine HCl 3 tab PO DAILY 05/29/19 05/29/19 ER] haloperidoL [Haldol] 2 mg PO Q8H PRN #60 tablet 07/01/19 risperiDONE [RisperDAL] 0.25 mg PO HS #30 tablet 07/18/19 Aspirin 81 mg PO 09/10/19 LORazepam [Ativan] 1 tab DAILY PRN 09/10/19 09/10/19 - Allergies Allergies/Adverse Reactions: Allergies Allergy/AdvReac Type Severity Reaction Status Date / Time adhesive Allergy Unknown Verified 10/23/19 18:26 alendronate sodium Allergy Unknown Verified 10/23/19 18:26 cephalexin Allergy Unknown Verified 10/23/19 18:26 chlorhexidine Allergy Unknown Verified 10/23/19 18:26 ciprofloxacin [From Cipro] Allergy Unknown Verified 10/23/19 18:26 erythromycin base Allergy Unknown Verified 10/23/19 18:26 ether Allergy Unknown Verified 10/23/19 18:26 fentanyl Allergy Unknown Verified 10/23/19 18:26 hydromorphone Allergy Unknown Verified 10/23/19 18:26 Iodinated Contrast Media Allergy Unknown Verified 10/23/19 18:26 methadone Allergy Unknown Verified 10/23/19 18:26 nitrofurantoin Allergy Unknown Verified 10/23/19 18:26 Penicillins Allergy Unknown Verified 10/23/19 18:26 strawberry Allergy Unknown Verified 10/23/19 18:26 Sulfa (Sulfonamide Allergy Unknown Verified 10/23/19 18:26 Antibiotics) zolpidem Allergy Unknown Verified 10/23/19 18:26 streptomycin AdvReac Unknown Verified 10/23/19 18:26 Norflurane-Pentaflouropropane Allergy Unknown Uncoded 10/23/19 18:26 - Social History Does the pt smoke?: No Smoking Status: Never smoker Does the pt drink ETOH?: No Does the pt have substance abuse?: No - Immunizations Immunizations are current?: No Immunizations: TDAP >10years/unknown PD ED PE NORMAL - Vitals Vital signs reviewed: Yes - General General: No acute distress - HEENT HEENT: Atraumatic, PERRL - Neck Neck: Supple, no meningeal sign - Cardiac Cardiac: RRR, No murmur, Strong equal pulses - Respiratory Respiratory: No respiratory distress, Clear bilaterally - Abdomen Abdomen: Normal bowel sounds, Soft, Non tender, Non distended - Derm Derm: Warm and dry - Extremities Extremities: No deformity - Neuro Neuro: Other (does not respond, no distress currently. does respond to pain but does not follow commands. no unilateral weakness.) - Psych Psych: Normal mood, Normal affect Results - Vitals Vitals: Vital Signs - 24 hr 10/23/19 10/23/19 10/23/19 18:26 20:35 20:36 Temperature 37.4 C 37.9 C H 37.9 C H Heart Rate 98 83 86 Respiratory 29 H 23 25 H Rate Blood Pressure 129/56 L 93/50 L 93/50 L O2 Saturation 92 92 93 10/23/19 10/23/19 10/23/19 21:00 21:30 21:50 Temperature 37.6 C H 37.5 C 37.6 C H Heart Rate 116 H 97 119 H Respiratory 29 H 28 H 29 H Rate Blood Pressure 93/50 L 104/72 131/59 H O2 Saturation 95 97 95 Oxygen O2 Source Room air - EKG (time done) 19:00 Rate: Other (no stemi) - Labs Labs: Laboratory Tests 10/23/19 10/23/19 10/23/19 19:30 19:30 19:30 WBC 14.9 H RBC 3.63 L Hgb 10.3 L Hct 32.8 L MCV 90.4 MCH 28.4 MCHC 31.4 L RDW 16.6 H Plt Count 187 MPV 10.1 Neut # (Auto) 12.8 H Lymph # (Auto) 0.9 L [place] # (Auto) 1.0 Eos # (Auto) 0.0 Baso # (Auto) 0.1 Absolute Nucleated RBC 0.00 Nucleated RBC % 0.0 PT 15.6 H INR 1.4 H APTT 42.3 H Sodium 141 Potassium 3.3 L Chloride 107 Carbon Dioxide 23 Anion Gap 11.0 BUN 34 H Creatinine 1.5 H Estimated GFR (MDRD) 34 L Glucose 134 H Lactic Acid Calcium 9.2 Total Creatine Kinase 221 Troponin I High Sens B-Natriuretic Peptide Urine Color Urine Clarity Urine pH Ur Specific [place] Urine Protein Urine Glucose (UA) Urine Ketones Urine Occult Blood Urine Nitrite Urine Bilirubin Urine Urobilinogen Ur Leukocyte Esterase Urine RBC Urine WBC Urine WBC Clumps Ur Squamous Epith Cells Urine Bacteria Ur Microscopic Review Urine Culture Comments 10/23/19 10/23/19 10/23/19 19:30 19:30 19:30 WBC RBC Hgb Hct MCV MCH MCHC RDW Plt Count MPV Neut # (Auto) Lymph # (Auto) [place] # (Auto) Eos # (Auto) Baso # (Auto) Absolute Nucleated RBC Nucleated RBC % PT INR APTT Sodium Potassium Chloride Carbon Dioxide Anion Gap BUN Creatinine Estimated GFR (MDRD) Glucose Lactic Acid Calcium Total Creatine Kinase Troponin I High Sens 11.0 B-Natriuretic Peptide 79 Urine Color YELLOW Urine Clarity CLOUDY Urine pH 8.5 H Ur Specific [place] 1.015 Urine Protein 100 H Urine Glucose (UA) NEGATIVE Urine Ketones NEGATIVE Urine Occult Blood LARGE H Urine Nitrite NEGATIVE Urine Bilirubin NEGATIVE Urine Urobilinogen 0.2 (NORMAL) Ur Leukocyte Esterase MODERATE H Urine RBC 6-10 H Urine WBC >25 H Urine WBC Clumps PRESENT Ur Squamous Epith Cells NONE SEEN Urine Bacteria Many H Ur Microscopic Review INDICATED Urine Culture Comments INDICATED 10/23/19 20:19 WBC RBC Hgb Hct MCV MCH MCHC RDW Plt Count MPV Neut # (Auto) Lymph # (Auto) [place] # (Auto) Eos # (Auto) Baso # (Auto) Absolute Nucleated RBC Nucleated RBC % PT INR APTT Sodium Potassium Chloride Carbon Dioxide Anion Gap BUN Creatinine Estimated GFR (MDRD) Glucose Lactic Acid 1.3 Calcium Total Creatine Kinase Troponin I High Sens B-Natriuretic Peptide Urine Color Urine Clarity Urine pH Ur Specific [place] Urine Protein Urine Glucose (UA) Urine Ketones Urine Occult Blood Urine Nitrite Urine Bilirubin Urine Urobilinogen Ur Leukocyte Esterase Urine RBC Urine WBC Urine WBC Clumps Ur Squamous Epith Cells Urine Bacteria Ur Microscopic Review Urine Culture Comments PD MEDICAL DECISION MAKING - ED course Complexity details: considered differential (uti, metabolic derangement, ofelia, ckd, arf, rhabdo, pna, acs, dementia.) - Consults Consults: Consulted (name) (dr. bernal), Discussed case with, Request databases computer consultant admit patient - Critical Care Time(min): 30 Time Includes: Direct patient care, Review records, Reassess patient, Document care, Coordinate care, Medical consult, Family consult for tx dec Data interpretation: Labs, Pulse ox, CXR Procedures included in critical care time: Peripheral IV Procedures excluded from critical care time: EKG Departure - Departure Disposition: 66 [facility] DC/Xfer Clinical Impression: AMS (altered mental status) Qualifiers: Altered mental status type: unspecified Qualified Code(s): R41.82 - Altered mental status, unspecified UTI (urinary tract infection) Qualifiers: Urinary tract infection type: acute cystitis Hematuria presence: without hematuria Qualified Code(s): N30.00 - Acute cystitis without hematuria Leukocytosis Qualifiers: Leukocytosis type: other Qualified Code(s): D72.828 - Other elevated white blood cell count Condition: Stable Discharge Date/Time: 10/23/19 23:00
[2019-10-23] MEDS ORDERED: SODIUM CHLORIDE 0.9% 1,000 ML IV ONE (19:48)
[2019-10-23 20:05] LABS: BASOPHILS # (AUTO) 0.1 10^3/uL (0.0-0.1); BASOPHILS % (AUTO) 0.5 %; EOSINOPHILS % (AUTO) 0.1 %; HGB - HEMOGLOBIN 10.3 g/dL (12.0-16.0); LYMPHOCYTES # (AUTO) 0.9 10^3/uL (1.5-3.5); MEAN CORPUSCULAR HEMOGLOBIN 28.4 pg (27.0-31.0); MEAN CORPUSCULAR HGB CONC 31.4 g/dL (32.0-36.0); MEAN CORPUSCULAR VOLUME 90.4 fL (81.0-99.0); MEAN PLATELET VOLUME 10.1 fL (7.9-10.8); MONOCYTES % (AUTO) 6.6 %; NEUTROPHILS # (AUTO) 12.8 10^3/uL (1.5-6.6); NEUTROPHILS % (AUTO) 85.7 %; PLT - PLATELET COUNT 187 10^3/uL (130-450); RED BLOOD COUNT 3.63 10^6/uL (4.20-5.40); RED CELL DISTRIBUTION WIDTH 16.6 % (12.0-15.0); WHITE BLOOD COUNT 14.9 x10^3/uL (4.8-10.8)
[2019-10-23] MEDS ORDERED: cefTRIAXone 1 GM in SODIUM CHLORIDE 0.9% MINIBAG 100 ML IV STA (20:07)
[2019-10-23 20:10] LABS: INR 1.4 (0.8-1.2); PT - PROTHROMBIN TIME 15.6 secs (9.9-12.6)
[2019-10-23 20:17] LABS: CALCIUM 9.2 mg/dL (8.5-10.3); CREATININE 1.5 mg/dL (0.4-1.0)
[2019-10-23 20:18] LABS: PARTIAL THROMBOPLASTIN TIME 42.3 secs (24.9-33.3)
[2019-10-23 20:23] LABS: BILIRUBIN,URINE NEGATIVE (NEGATIVE); GLUCOSE, URINE (UA) NEGATIVE (NEGATIVE); KETONES,URINE (UA) NEGATIVE (NEGATIVE); LEUKOCYTE ESTERASE, URINE MODERATE (NEGATIVE); NITRITE,URINE NEGATIVE (NEGATIVE); OCCULT BLOOD,URINE LARGE (NEGATIVE); PH,URINE 8.5 PH (5.0-7.5); PROTEIN,URINE 100 mg/dL (NEGATIVE); UROBILINOGEN,URINE 0.2 (NORMAL) E.U./dL (NORMAL)
[2019-10-23 20:24] LABS: CLARITY,URINE CLOUDY (CLEAR)
[2019-10-23 20:32] LABS: BACTERIA,URINE Many /HPF (None Seen); SQUAMOUS EPITHELIAL CELL,UR NONE SEEN (<= Few); WBC CLUMPS,URINE PRESENT
--- NOTE | 2019-10-23 20:41 | XRAY Report ---
Reason: ams Procedure Date: 10/23/2019 Accession Number: [id number] / [id number] Procedure: XR - Chest 1 View X-Ray CPT Code: 77246 Final Report FULL RESULT: EXAM: CHEST RADIOGRAPHY EXAM DATE: 10/23/2019 08:08 PM. CLINICAL HISTORY: Altered mental status. COMPARISON: CHEST 1 VIEW 09/10/2019 10:45 PM CHEST 2 VIEW 05/29/2019 3:57 AM. TECHNIQUE: Upright AP view. FINDINGS: Lungs/Pleura: Mild right hemidiaphragm elevation, as before. Lung volumes are low and decreased from before. No focal opacities evident. No pleural effusion. No pneumothorax. Mediastinum: Within exam limitations, the cardiomediastinal contour is normal. Left-sided coronary artery stent, as before. Aortic arch calcification. Left subclavian Port-A-Cath, as before. Other: None. IMPRESSION: No evidence of active cardiopulmonary disease. RADIA
--- NOTE | 2019-10-23 21:38 | CT Report ---
Reason: AMS Procedure Date: 10/23/2019 Accession Number: [id number] / [id number] Procedure: CT - HEAD WO CPT Code: Final Report FULL RESULT: EXAM: CT HEAD EXAM DATE: 10/23/2019 08:59 PM. CLINICAL HISTORY: AMS. COMPARISON: None. TECHNIQUE: Multiaxial CT images were obtained from the foramen magnum to the vertex. Reformats: Sagittal and coronal. IV contrast: None. In accordance with CT protocol optimization, one or more of the following dose reduction techniques were utilized for this exam: automated exposure control, adjustment of mA and/or KV based on patient size, or use of iterative reconstructive technique. FINDINGS: Parenchyma: No intraparenchymal hemorrhage. No evidence of mass, midline shift, or CT findings of infarction. Kirby-white differentiation is distinct. Extraaxial Spaces: Normal for age. No subdural or epidural collections identified. Ventricles: Normal in size and position. Sinuses and Orbits: Imaged paranasal sinuses, orbits, and mastoids show no significant abnormality. Bones: No evidence of fracture or calvarial defect. Other: None. IMPRESSION: No significant intracranial abnormality. RADIA
[2019-10-23] MEDS ORDERED: ACETAMINOPHEN 325 MG TABLET PO PRN (21:58)
[2019-10-23] MEDS ORDERED: ONDANSETRON 4 MG/2 ML VIAL IVP PRN (21:58)
[2019-10-23] MEDS ORDERED: LACTATED RINGERS 1,000 ML IV ONE (22:02)
--- NOTE | 2019-10-23 22:33 | HISTORY & PHYSICAL EXAMINATION ---
Chief Complaint - Chief Complaint Chief Complaint: Confusion History of Present Illness - Admitted From Admitted From:: [facility] - History Obtained From Records Reviewed: Yes History obtained from: ER Physician, ER Nurse, Patient's son, EMR Exam Limitations: Patient is unable to provide history. - History of Present Illness HPI Comment/Other: This is a 78-year-old female with a past medical history significant for dementia with behavioral disturbances, atrial fibrillation, coronary artery disease, recurrent UTIs, hypothyroidism who presents today from [facility] due to decreased levels of consciousness and fever. She was diagnosed with a urinary tract infection today and was supposed to be started on Levaquin but due to issues with the pharmacy, this was never started. She was found to have a fever this afternoon and she has become increasingly altered and therefore she was sent here to the emergency department. She did receive Tylenol prior to her arrival here. Patient reportedly at baseline, is able to ambulate on her own but does wax and wane from a mental standpoint and is delirious at night. She is currently unable to provide a history as she is quite altered and just grimacing in discomfort. She does not follow commands. In the emergency department, she is found to be febrile with temperature of 37.9 C. Tachycardic with a heart rate of 116. Her blood pressure was initially low at 93/50 but this improved to the 120 systolic after 2 L of normal saline. She was tachypneic in the mid to high 20s. She was saturating well on room air. Her labs revealed a white count of 14.9 with a left shift. Her BUN and creatinine were elevated at 34 and 1.5 respectively. Lactic acid was normal. Her urinalysis revealed moderate leukocyte Estrace, over 25 WBCs, many bacteria. A CT the head was unremarkable for any acute abnormalities. A chest x-ray also did not reveal any acute abnormalities. Given her encephalopathy, UTI, and concern for sepsis, Medicine was consulted for admission. I did speak with the patient's son, Isaiah Reyna, on the phone who states that although he does not have any official POA paperwork, he states that his mother would want to be a DNR. History - Past Medical History Cardiovascular: reports: Hypertension, High cholesterol, Coronary artery disease, [place], Atrial fibrillation Respiratory: reports: Asthma, COPD Neuro: reports: Dementia Endocrine/Autoimmune: reports: HyPOthyroidism GI: reports: Hiatal hernia : reports: Incontinence HEENT: reports: None Psych: reports: Depression Musculoskeletal: reports: Osteoarthritis, Fibromyalgia, Other Derm: reports: None MRSA Hx?: No - Family & Social History Family History Comment/Other: Patient is unable to provide her family history. I did ask her son but he is unaware of any significant family history to his knowledge. Living arrangement: Assisted living Social History Notes: She resides at [facility]. I am unable to obtain any further social history. Meds/Allgy - Home Medications Home Medications: Ambulatory Orders Medication Instructions Recorded Confirmed Acetaminophen [Tylenol] 325 mg PO PRN PRN 05/29/19 05/29/19 Apixaban [Eliquis] 5 mg PO BID 05/29/19 05/29/19 Budesonide/Formoterol Fumarate 2 puffs INH BID 05/29/19 05/29/19 [Symbicort 160-4.5 Mcg Inhaler] Famotidine 20 mg PO BID 05/29/19 05/29/19 Levothyroxine [Synthroid] 25 mcg PO DAILY 05/29/19 05/29/19 Metoprolol Succinate 25 mg PO DAILY 05/29/19 05/29/19 Oxybutynin [place]lor[place] [Ditropan Xl] 10 mg PO DAILY 05/29/19 05/29/19 Pregabalin 75 mg PO BID 05/29/19 05/29/19 Sennosides [Senna Laxative] 8.6 mg PO BID PRN 05/29/19 05/29/19 Simvastatin 40 mg PO QPM 05/29/19 05/29/19 Umeclidinium [place] [Incruse 1 puffs INH DAILY 05/29/19 05/29/19 Ellipta] Venlafaxine HCl [Venlafaxine HCl 3 tab PO DAILY 05/29/19 05/29/19 ER] haloperidoL [Haldol] 2 mg PO Q8H PRN #60 tablet 07/01/19 risperiDONE [RisperDAL] 0.25 mg PO HS #30 tablet 07/18/19 Aspirin 81 mg PO 09/10/19 LORazepam [Ativan] 1 tab DAILY PRN 09/10/19 09/10/19 - Allergies Allergies/Adverse Reactions: Allergies Allergy/AdvReac Type Severity Reaction Status Date / Time adhesive Allergy Unknown Verified 10/23/19 18:26 alendronate sodium Allergy Unknown Verified 10/23/19 18:26 cephalexin Allergy Unknown Verified 10/23/19 18:26 chlorhexidine Allergy Unknown Verified 10/23/19 18:26 ciprofloxacin [From Cipro] Allergy Unknown Verified 10/23/19 18:26 erythromycin base Allergy Unknown Verified 10/23/19 18:26 ether Allergy Unknown Verified 10/23/19 18:26 fentanyl Allergy Unknown Verified 10/23/19 18:26 hydromorphone Allergy Unknown Verified 10/23/19 18:26 Iodinated Contrast Media Allergy Unknown Verified 10/23/19 18:26 methadone Allergy Unknown Verified 10/23/19 18:26 nitrofurantoin Allergy Unknown Verified 10/23/19 18:26 Penicillins Allergy Unknown Verified 10/23/19 18:26 strawberry Allergy Unknown Verified 10/23/19 18:26 Sulfa (Sulfonamide Allergy Unknown Verified 10/23/19 18:26 Antibiotics) zolpidem Allergy Unknown Verified 10/23/19 18:26 streptomycin AdvReac Unknown Verified 10/23/19 18:26 Norflurane-Pentaflouropropane Allergy Unknown Uncoded 10/23/19 18:26 Review of Systems - All Other Systems All Other Systems: reports: Other (Unable to obtain a review of systems due to her encephalopathy.) Prior Level of Functionality: She resides at a memory care unit. She is reportedly independent with ambulation. She is delirious at night and does wax and wane from mental standpoint. Exam - Vital Signs Reviewed Vital Signs: Yes Vital Signs: Vital Signs x48h Temp Pulse Resp BP Pulse Ox 10/23/19 21:50 37.6 C H 119 H 29 H 131/59 H 95 10/23/19 21:30 37.5 C 97 28 H 104/72 97 10/23/19 21:00 37.6 C H 116 H 29 H 93/50 L 95 10/23/19 20:36 37.9 C H 86 25 H 93/50 L 93 10/23/19 20:35 37.9 C H 83 23 93/50 L 92 10/23/19 18:26 37.4 C 98 29 H 129/56 L 92 - Physical Exam General Appearance: positive: Moderate distress, Lethargic, Other (He does not follow commands and appears uncomfortable.) Eyes Bilateral: positive: Conjunctivae nml ENT: positive: Dry mucous membranes. negative: No signs of dehydration Neck: positive: Nml inspection Respiratory: positive: Other (She is tachypneic but with clear lung sounds.). negative: Wheezes, Rales Cardiovascular: positive: No murmur, Irregularly irregular, Tachycardia. negative: Bradycardia, Systolic murmur, Diastolic murmur Abdomen: positive: Non-tender, Other (There is an umbilical hernia noted. Her bowel sounds are hypoactive.). negative: Tenderness, Guarding, Rebound Skin: positive: No rash, Warm, Dry Extremities: positive: No pedal edema Neurologic/Psychiatric: positive: Other (She is unable to follow commands. Unable to assess for any focal motor deficits.) Sepsis Event Note (H) - Evaluation Current Stage of Sepsis: Severe sepsis Possible source of Sepsis: positive: Genitourinary - Sepsis Criteria Sepsis Criteria: Recorded Temperature greater than 38.3C or Less than 36C, Recorded Heart Rate greater than 90 bpm, Recorded Respiratory Rate greater than 20, WBC count greater than 12,000 or less than 4000, FLIGHT INSTRUCTOR: altered consciousness (unrelated to primary neuro pathology) Conclusion/Plan - Problem List (1) Severe sepsis Conclusion/Plan: She meets criteria for severe sepsis given her fever, tachycardia, leukocytosis with left shift, acute kidney injury and encephalopathy. This appears to be secondary to her urinary tract infection. Chest x-ray does not reveal any signs of infection. She received ceftriaxone IV and 2 L of saline in the emergency department. We will continue her on broad-spectrum antibiotics and de-escalate based off of cultures. Continue with IV hydration. Follow-up her blood cultures. Daily CBC. (2) Encephalopathy Conclusion/Plan: She has acute encephalopathy in the setting of dementia and this appears to be secondary to her sepsis and urinary tract infection. A CT of the head was unremarkable. She is unable to provide a history at this moment and does not follow commands. At baseline, she reportedly ambulates on her own although she is delirious at times and her mantal status waxes and wanes. We will continue to treat her underlying sepsis and urinary tract infection. Avoid sedatives and any medications which may cause delirium. We will resume her home risperidone when she is taking p.o. You can use Haldol as needed for the time being. N.p.o. until her mental status improves. (3) UTI (urinary tract infection) Conclusion/Plan: She has a history of recurrent urinary tract infections and was diagnosed with one today at her memory care unit but unfortunate was not started on Levaquin due to issues with the pharmacy. There are no prior cultures available to me at the moment. Her urinalysis is suggestive of infection given the pyuria, matthew kocyte Estrace, bacteriuria. She received ceftriaxone IV in the emergency department. We will obtain a CT of the abdomen pelvis without contrast given her acute kidney injury to evaluate for any renal stones and possible obstruction. We will place her on vancomycin and aztreonam for broad-spectrum coverage given her severe sepsis and her penicillin allergy. Qualifiers: Urinary tract infection type: acute cystitis Hematuria presence: without hematuria Qualified Code(s): N30.00 - Acute cystitis without hematuria (4) Atrial fibrillation with rapid ventricular response Conclusion/Plan: She initially presented in a sinus rhythm with heart rate in the 90s but she not tachycardic with a heart rate in the 130s. She has a history of paroxysmal A. fib for which he takes metoprolol and Eliquis. Suspect that her hypovolemic status and sepsis is driving the atrial fibrillation. We will continue to hydrate her with IV fluids. We we will give her IV Lopressor if she remains tachycardic and her blood pressure remained stable in the 120s otherwise we can consider an amiodarone bolus or a one-time dose of digoxin. Her initial troponin is negative and we will trend this. Monitor her on telemetry. We will use heparin subcu for DVT prophylaxis until she is able to take p.o. again and then we will resume her Eliquis. (5) Acute kidney injury Conclusion/Plan: Her creatinine is elevated at 1.5 compared to her baseline of 0.8. This is likely a prerenal injury given she is hypovolemic and septic. This should improve with IV fluids. We will continue to monitor her renal function and urine output. (6) Hypokalemia Conclusion/Plan: Potassium is decreased at 3.3 and we will replace this intravenously. Monitor on a daily basis (7) Dementia with behavioral disturbance Conclusion/Plan: History of dementia for which she is on risperidone as well as Haldol as needed. We will resume her risperidone and use Haldol as needed if she becomes ag itated. Qualifiers: Dementia type: unspecified type Qualified Code(s): F03.91 - Unspecified dementia with behavioral disturbance (8) Hypothyroidism Conclusion/Plan: We will continue her home Synthroid and check a TSH in the morning. (9) Coronary artery disease Conclusion/Plan: She is on aspirin and simvastatin at home. Her EKG shows nonspecific T wave changes in the lateral leads. Her initial troponin is negative. We will resume her home aspirin and simvastatin once she is taking p.o. We will continue to trend her troponin and monitor her on telemetry. (10) COPD (chronic obstructive pulmonary disease) Conclusion/Plan: Stable and not in exacerbation. She will continue her Symbicort while she is hospitalized and use albuterol as needed. - Lab Results Lab results reviewed: Yes Bran Bones: 10/23/19 19:30 10/23/19 19:30 - Diagnostic Imaging Results Diagnostic Imaging Results: positive: Final report reviewed - EKG Results EKG Interpreted Independently: Yes EKG Findings: Her EKG upon arrival to the emergency department shows a sinus rhythm with non- specific T wave changes in the lateral leads Core Measures - Anticipated LOS I expect patient to be DC'd or transferred within 96 hours.: Yes - Issues Hospital Issues and Management Plan: 78-year-old female who presents from a memory care unit due to worsening mental status and fever found to have severe sepsis secondary to a urinary tract infection. We will admit her for IV antibiotics and fluids. - DVT/VTE - Prophylaxis VTE/DVT Device ordered at admit?: Yes VTE/DVT Prophylaxis med ordered at admit?: Yes
[2019-10-23] MEDS ORDERED: METOPROLOL 5 MG/5 ML VIAL IVP STA (22:52)
[2019-10-23] MEDS ORDERED: ALBUTEROL NEB 2.5 MG/3 ML INH PRN (22:58)
[2019-10-23] MEDS ORDERED: VANCOMYCIN INJ 0.75 GM in SODIUM CHLORIDE 0.9% 250 ML IV SCH (23:00)
--- NOTE | 2019-10-23 23:40 | CT Report ---
Reason: Sepsis. UTI. GORDON Procedure Date: 10/23/2019 Accession Number: [id number] / [id number] Procedure: CT - Abdomen/Pelvis WO CPT Code: Final Report FULL RESULT: EXAM: CT ABDOMEN AND PELVIS EXAM DATE: 10/23/2019 08:59 PM. CLINICAL HISTORY: Sepsis. Acute renal failure. COMPARISONS: None. TECHNIQUE: Routine helical CT imaging was performed through the abdomen and pelvis. IV contrast: None. Enteric contrast: No. Reconstructions: Coronal and sagittal. In accordance with CT protocol optimization, one or more of the following dose reduction techniques were utilized for this exam: automated exposure control, adjustment of mA and/or KV based on patient size, or use of iterative reconstructive technique. FINDINGS: Lung Bases: Unremarkable. Liver: Normal. No masses. Gallbladder/Bile Ducts: Unremarkable. Spleen: Normal. Pancreas: Normal. Adrenal Glands: Normal. Kidneys: Unremarkable right kidney. Obstructing 5 x 5 x 8 mm left UPJ stone with left hydronephrosis and perinephric fat stranding. Nonobstructing calculi in lower left renal calyces as well. Peritoneal Cavity/Bowel: Mild diverticulosis. No free fluid, free air or adenopathy. No masses or acute inflammatory process. Nonvisualized appendix. Pelvic Organs: Hysterectomy. Burdick catheter drains the bladder. Vasculature: No aortic enlargement. Advanced atherosclerotic calcification. Bones: No significant abnormality. Other: Fat-containing umbilical and periumbilical hernias. IMPRESSION: 1. Obstructing 5 x 5 x 8 mm left UPJ stone with hydronephrosis and perinephric fat stranding. 2. Nonobstructing stones in left renal calyces. 3. Diverticulosis without diverticulitis. 4. Hysterectomy. 5. Advanced atherosclerotic calcification. 6. Fat-containing umbilical and periumbilical hernias. RADIA
[2019-10-23] MEDS ORDERED: VANCOMYCIN PER PHARMACY 100 GM in SODIUM CHLORIDE 0.9% 250 ML IV SCH (23:45)
[2019-10-24] MEDS ORDERED: ACETAMINOPHEN 1,000 MG/100 ML 100 ML IV PRN (00:02)
[2019-10-24] MEDS: AZTREONAM 1 GM in SODIUM CHLORIDE 0.9% MINIBAG 100 ML IV SCH ×3 (00:47→13:38)
[2019-10-24] MEDS: LACTATED RINGERS 1,000 ML IV SCH ×2 (00:47→12:47)
[2019-10-24] MEDS: SODIUM CHLORIDE FLUSH 0.9% 10 ML SYRINGE IVP SCH ×2 (00:50→08:00)
[2019-10-24] MEDS ORDERED: DIGOXIN 500 MCG/2 ML AMP IVP STA (01:04)
[2019-10-24] MEDS: SODIUM CHLORIDE FLUSH 0.9% 10 ML SYRINGE IVP PRN ×2 (01:22→02:38)
[2019-10-24] MEDS ORDERED: WATER FOR INJECTION,STERILE 10 ML ONE ×2 (01:42→01:45)
[2019-10-24] MEDS: POTASSIUM CHLOR 10 MEQ/100 ML 10 MEQ/100 ML BAG IV SCH ×4 (02:03→05:22)
[2019-10-24 05:44] LABS: BASOPHILS # (AUTO) 0.1 10^3/uL (0.0-0.1); BASOPHILS % (AUTO) 0.4 %; EOSINOPHILS % (AUTO) 0.2 %; HGB - HEMOGLOBIN 10.6 g/dL (12.0-16.0); LYMPHOCYTES # (AUTO) 0.9 10^3/uL (1.5-3.5); LYMPHOCYTES % (AUTO) 6.7 %; MEAN CORPUSCULAR HEMOGLOBIN 28.4 pg (27.0-31.0); MEAN CORPUSCULAR VOLUME 91.7 fL (81.0-99.0); MEAN PLATELET VOLUME 10.4 fL (7.9-10.8); MONOCYTES % (AUTO) 7.3 %; NEUTROPHILS # (AUTO) 11.8 10^3/uL (1.5-6.6); NEUTROPHILS % (AUTO) 84.7 %; PLT - PLATELET COUNT 159 10^3/uL (130-450); RED BLOOD COUNT 3.73 10^6/uL (4.20-5.40); RED CELL DISTRIBUTION WIDTH 16.7 % (12.0-15.0)
[2019-10-24 05:58] LABS: CALCIUM 8.5 mg/dL (8.5-10.3); CREATININE 1.3 mg/dL (0.4-1.0)
[2019-10-24] MEDS ORDERED: BUDESONIDE 0.5 MG/2 ML NEB INH SCH (07:00)
[2019-10-24] MEDS ORDERED: LEVOTHYROXINE 25 MCG TABLET PO SCH (07:00)
[2019-10-24] MEDS ORDERED: FORMOTEROL FUMARATE NEB 20 MCG/2 ML INH SCH (07:00)
[2019-10-24] MEDS ORDERED: HEPARIN 5,000 UNIT/ML VIAL SUBQ SCH (09:00)
--- NOTE | 2019-10-24 11:02 | DISCHARGE SUMMARY ---
Discharge Summary Admit Date: 10/23/19 Discharge Date: 10/24/19 Discharging Provider: Armaan Argueta Condition at Discharge: Stable Discharge Disposition: 02 Transfer Acute Care Hosp Discharge Facility Name: [facility] - DIAGNOSES Admission Diagnoses: (1) Severe sepsis (2) Encephalopathy (3) UTI (urinary tract infection) (4) Atrial fibrillation with rapid ventricular response (5) Acute kidney injury (6) Hypokalemia (7) Dementia with behavioral disturbance (8) Hypothyroidism (9) Coronary artery disease (10) COPD (chronic obstructive pulmonary disease) Discharge Diagnoses with Status of Each Condition: (1)obstructing UPJ stone pt was found to have acute UPJ obstructed stone with lower degree of fever. [facility] urologist and hospitalist was called, both agreed to accept pt for high level of care. pt was transferred to [facility] (2) Severe sepsis pt was found to have fever, elevated WBC, and decreased BP. pt was treated with antibiotics and IVF. pt's conditions were report to hospitalist in [facility]. pt was transfered to high level of care (3) Encephalopathy stable as her baseline (4) UTI (urinary tract infection) pt was found UTI, and treated with antibiotics (5) Atrial fibrillation with rapid ventricular response stable HR. pt take eliquis in home (6) Acute kidney injury improved. pt was transfered to high level of care (7) Hypokalemia resolved (8) Dementia with behavioral disturbance stable (9) Hypothyroidism TSH is normal (10) Coronary artery disease stable (11) COPD (chronic obstructive pulmonary disease) stable (12)bacteremia pt is positive bacteremia in both blood culture tube which were gram negative bacilli. pt was transfered to high level of care - HPI History of Present Illness: refer from Dr. Pepper's HPI on 10/23/2019 This is a 78-year-old female with a past medical history significant for dementia with behavioral disturbances, atrial fibrillation, coronary artery disease, recurrent UTIs, hypothyroidism who presents today from [facility] due to decreased levels of consciousness and fever. She was diagnosed with a urinary tract infection today and was supposed to be started on Levaquin but due to issues with the pharmacy, this was never started. She was found to have a fever this afternoon and she has become increasingly altered and therefore she was sent here to the emergency department. She did receive Tylenol prior to her arrival here. Patient reportedly at baseline, is able to ambulate on her own but does wax and wane from a mental standpoint and is delirious at night. She is currently unable to provide a history as she is quite altered and just grimacing in discomfort. She does not follow commands. In the emergency department, she is found to be febrile with temperature of 37.9 C. Tachycardic with a heart rate of 116. Her blood pressure was initially low at 93/50 but this improved to the 120 systolic after 2 L of normal saline. She was tachypneic in the mid to high 20s. She was saturating well on room air. Her labs revealed a white count of 14.9 with a left shift. Her BUN and creatinine were elevated at 34 and 1.5 respectively. Lactic acid was normal. Her urinalysis revealed moderate leukocyte Estrace, over 25 WBCs, many bacteria. A CT the head was unremarkable for any acute abnormalities. A chest x-ray also did not reveal any acute abnormalities. Given her encephalopathy, UTI, and concern for sepsis, Medicine was consulted for admission. I did speak with the patient's son, Isaiah Reyna, on the phone who states that although he does not h ave any official POA paperwork, he states that his mother would want to be a DNR. - HOSPITAL COURSE Hospital Course: pt was admitted for fever. pt was found to have UTI, and later pt was found to have obstructed UPJ, and bacteremia. pt was treated with antibiotics Aztreonam and vancomycin. Urologist and hospitalist in [facility] was called and reported for pt's medical conditions. both doctors accepted pt for high level of care. pt was transfered to [facility] for high level of care. (1)obstructing UPJ stone pt was found to have acute UPJ obstructed stone with lower degree of fever. [facility] urologist and hospitalist was called, both agreed to accept pt for high level of care. pt was transferred to [facility] (2) Severe sepsis pt was found to have fever, elevated WBC, and decreased BP. pt was treated with antibiotics and IVF. pt's conditions were report to hospitalist in [facility]. pt was transfered to high level of care (3) Encephalopathy stable as her baseline (4) UTI (urinary tract infection) pt was found UTI, and treated with antibiotics (5) Atrial fibrillation with rapid ventricular response stable HR. pt take eliquis in home (6) Acute kidney injury improved. pt was transfered to high level of care (7) Hypokalemia resolved (8) Dementia with behavioral disturbance stable (9) Hypothyroidism TSH is normal (10) Coronary artery disease stable (11) COPD (chronic obstructive pulmonary disease) stable (12)bacteremia pt is positive bacteremia in both blood culture tube which were gram negative bacilli. pt was transfered to high level of care - ALLERGIES Allergies/Adverse Reactions: Allergies Allergy/AdvReac Type Severity Reaction Status Date / Time adhesive Allergy Unknown Verified 10/23/19 18:26 alendronate sodium Allergy Unknown Verified 10/23/19 18:26 cephalexin Allergy Unknown Verified 10/23/19 18:26 chlorhexidine Allergy Unknown Verified 10/23/19 18:26 ciprofloxacin [From Cipro] Allergy Unknown Verified 10/23/19 18:26 erythromycin base Allergy Unknown Verified 10/23/19 18:26 ether Allergy Unknown Verified 10/23/19 18:26 fentanyl Allergy Unknown Verified 10/23/19 18:26 hydromorphone Allergy Unknown Verified 10/23/19 18:26 Iodinated Contrast Media Allergy Unknown Verified 10/23/19 18:26 methadone Allergy Unknown Verified 10/23/19 18:26 nitrofurantoin Allergy Unknown Verified 10/23/19 18:26 Penicillins Allergy Unknown Verified 10/23/19 18:26 strawberry Allergy Unknown Verified 10/23/19 18:26 Sulfa (Sulfonamide Allergy Unknown Verified 10/23/19 18:26 Antibiotics) zolpidem Allergy Unknown Verified 10/23/19 18:26 streptomycin AdvReac Unknown Verified 10/23/19 18:26 Norflurane-Pentaflouropropane Allergy Unknown Uncoded 10/23/19 18:26 - MEDICATIONS Home Medications: Ambulatory Orders Medication Instructions Recorded Confirmed Acetaminophen [Tylenol] 650 mg PO Q6H PRN 05/29/19 10/24/19 Apixaban [Eliquis] 5 mg PO BID 05/29/19 10/24/19 Budesonide/Formoterol Fumarate 2 puffs INH BID 05/29/19 10/24/19 [Symbicort 160-4.5 Mcg Inhaler] Famotidine 20 mg PO BID 05/29/19 10/24/19 Levothyroxine [Synthroid] 25 mcg PO DAILY 05/29/19 10/24/19 Metoprolol Succinate 25 mg PO DAILY 05/29/19 10/24/19 Oxybutynin Chloride [Ditropan Xl] 10 mg PO DAILY 05/29/19 10/24/19 Pregabalin 75 mg PO BID 05/29/19 10/24/19 Sennosides [Senna Laxative] 8.6 mg PO BID PRN 05/29/19 10/24/19 Simvastatin 40 mg PO QPM 05/29/19 10/24/19 Umeclidinium [place] [Incruse 1 puffs INH DAILY 05/29/19 10/24/19 Ellipta] Venlafaxine HCl [Venlafaxine HCl 3 tab PO DAILY 05/29/19 10/24/19 ER] haloperidoL [Haldol] 2 mg PO Q8H PRN #60 tablet 07/01/19 10/24/19 Aspirin 81 mg PO MOWEFR 09/10/19 10/24/19 LORazepam [Ativan] 0.5 mg PO Q4H PRN 09/10/19 10/24/19 Albuterol Sulf [Ventolin Hfa 1 - 2 puffs INH Q4H PRN 10/24/19 10/24/19 Inhaler] risperiDONE [RisperDAL] 0.25 mg PO QPM 10/24/19 10/24/19 - PHYSICAL EXAM AT DISCHARGE General Appearance: positive: No acute distress, Alert. negative: Lethargic Eyes Bilateral: positive: Normal inspection, PERRL, No lid inflammation ENT: positive: ENT inspection nml, Pharynx nml, No signs of dehydration. negative: Purulent nasal drainage Neck: positive: Nml inspection, Thyroid nml, No JVD, Trachea midline. negative: Thyromegaly, Lymphadenopathy (R), Lymphadenopathy (L), Stiff neck, Tracheal deviation Respiratory: positive: Chest non-tender, No respiratory distress, Breath sounds nml. negative: Wheezes, Rales, Rhonchi Cardiovascular: positive: Regular rate & rhythm, No murmur, No gallop. negative: Irregularly irregular, Extrasystoles, Tachycardia, Bradycardia, JVD present, Systolic murmur, Diastolic murmur Peripheral Pulses: positive: 2+ Abdomen: positive: Non-tender, No organomegaly, Nml bowel sounds, No distention. negative: Tenderness, Guarding, Rebound Back: positive: Nml inspection. negative: CVA tenderness (R), CVA tenderness (L) Skin: positive: Color nml, No rash, Warm, Dry. negative: Cyanosis, Diaphoresis, Pallor Extremities: positive: Non-tender, Full ROM, Nml appearance. negative: Calf tenderness, Criselda's sign/cords Neurologic/Psychiatric: positive: Sensation nml. 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 - TIME SPENT Time Spent in Discharge (Minutes): 30
--- NOTE | 2019-10-24 13:30 | PHARMACY PROGRESS NOTE ---
- Best Possible Medication History Admit Date and Time: 10/23/19 1567 Medication History completed: In progress (Awaiting facility MAR fax) Patient Interview: Pt unable to participate As the person ultimately responsible for medication therapy, providers are able to order a medication from an existing home medication list in [facility] via the "Reconcile Routine" prior to Confirmation of that medication by community support worker. Such practice is discouraged except when the physician, in their clinical judgment, deems that a medical need exists for a medication without regard to previous use.
[2019-10-24 14:35] VITALS: BP 131/54
[2019-10-24] MEDS ORDERED: risperiDONE 0.25 MG TABLET PO SCH (21:00)
[2019-10-25] MEDS ORDERED: VANCOMYCIN INJ 1 GM in SODIUM CHLORIDE 0.9% 250 ML IV SCH (01:59)
== END 2019-10-24 14:44 | disposition short-term general hospital (02) | DRG 872 ==
LOC: EDUNIT# → ED 18:16 → MS2 21:58
PROVIDERS: ADMIT Internal Medicine; ATTEND Nurse Practitioner Gerontology
DX: N30.00 Acute cystitis without hematuria (principal); A41.50 Gram-negative sepsis, unspecified; N13.6 Pyonephrosis; G93.40 Encephalopathy, unspecified; I48.91 Unspecified atrial fibrillation; N17.9 Acute kidney failure, unspecified; F03.91 Unspecified dementia, unspecified severity, with behavioral disturbance; R65.20 Severe sepsis without septic shock; I48.0 Paroxysmal atrial fibrillation; F32.9 Major depressive disorder, single episode, unspecified; E87.6 Hypokalemia; E86.1 Hypovolemia; E03.9 Hypothyroidism, unspecified; I25.10 Atherosclerotic heart disease of native coronary artery without angina pectoris; J44.9 Chronic obstructive pulmonary disease, unspecified; I10 Essential (primary) hypertension; E78.00 Pure hypercholesterolemia, unspecified; I25.2 Old myocardial infarction; R32 Unspecified urinary incontinence; K44.9 Diaphragmatic hernia without obstruction or gangrene; M79.7 Fibromyalgia; M19.90 Unspecified osteoarthritis, unspecified site; Z79.51 Long term (current) use of inhaled steroids; Z79.82 Long term (current) use of aspirin; Z79.899 Other long term (current) drug therapy
CPT/HCPCS: 36415; 70450; 71045; 74176; 80048; 81001; 82550; 83605; 83735; 83880; 84100; 84443; 84484; 85025; 85610; 85730; 87040; 87077; 87086; 87181; 93005; 94640; 96361; 96365; 99285; 99291; J3370; J3490; J7120; J7626; 81003

== ENCOUNTER 2020-01-03 05:11 | Outpatient (CLI) | payer MEDICARE, MEDICAID | END 2020-01-03 05:12 | disposition critical access hospital (66) | LOC: EMS 05:11 | PROVIDERS: ATTEND Surgery | DX: M25.512 Pain in left shoulder (principal); M25.522 Pain in left elbow; W19.XXXA Unspecified fall, initial encounter | CPT/HCPCS: A0425; A0429 ==

== ENCOUNTER 2020-01-03 05:26 | Inpatient (IN) | payer MEDICARE, MEDICAID ==
[2020-01-03 06:15] LABS: BASOPHILS # (AUTO) 0.1 10^3/uL (0.0-0.1); BASOPHILS % (AUTO) 0.5 %; EOSINOPHILS # (AUTO) 0.2 10^3/uL (0.0-0.7); EOSINOPHILS % (AUTO) 1.3 %; HGB - HEMOGLOBIN 10.4 g/dL (12.0-16.0); LYMPHOCYTES # (AUTO) 1.4 10^3/uL (1.5-3.5); LYMPHOCYTES % (AUTO) 9.4 %; MEAN CORPUSCULAR HEMOGLOBIN 27.6 pg (27.0-31.0); MEAN CORPUSCULAR HGB CONC 31.2 g/dL (32.0-36.0); MEAN CORPUSCULAR VOLUME 88.3 fL (81.0-99.0); MEAN PLATELET VOLUME 9.3 fL (7.9-10.8); MONOCYTES # (AUTO) 1.3 10^3/uL (0.0-1.0); MONOCYTES % (AUTO) 8.5 %; NEUTROPHILS # (AUTO) 11.8 10^3/uL (1.5-6.6); NEUTROPHILS % (AUTO) 79.8 %; PLT - PLATELET COUNT 364 10^3/uL (130-450); RED BLOOD COUNT 3.77 10^6/uL (4.20-5.40); RED CELL DISTRIBUTION WIDTH 16.3 % (12.0-15.0); WHITE BLOOD COUNT 14.8 x10^3/uL (4.8-10.8)
[2020-01-03] MEDS ORDERED: TETANUS/DIPHTHERIA/PERTUSSIS 0.5 ML SYRINGE IM ONE (06:22)
[2020-01-03 06:24] LABS: ALBUMIN 3.6 g/dL (3.2-5.5); ALBUMIN/GLOBULIN RATIO 0.7 (1.0-2.2); BILIRUBIN,TOTAL 0.5 mg/dL (0.2-1.0); CALCIUM 9.8 mg/dL (8.5-10.3); CREATININE 1.3 mg/dL (0.4-1.0); TOTAL PROTEIN 8.5 g/dL (6.7-8.2)
--- NOTE | 2020-01-03 06:40 | ED Physician Documentation ---
History of Present Illness - Stated complaint Stated Complaint: FALL/ L NIMOULER PX - Chief complaint Chief Complaint: Laceration - History obtained from History obtained from: Patient, EMS - Additonal information Additional information: Patient is brought to the emergency department by EMS after being found on the floor of her memory care unit. The patient cannot say how she fell and thinks that she may have "slipped on water". She states that her left shoulder and left hip are hurting. She thinks she hit her head. She states she has neck pain that she hurts "all over. Staff help patient into her bed, but due to the patient's discomfort, they called EMS. Patient is on Eliquis for unclear reasons. She was noted to have a skin tear on her left arm by staff and medics. No other complaints at this time. Review of Systems Ten Systems: 10 systems reviewed and negative Constitutional: reports: Reviewed and negative Eyes: reports: Reviewed and negative Ears: reports: Reviewed and negative Nose: reports: Reviewed and negative Throat: reports: Reviewed and negative Cardiac: reports: Reviewed and negative Respiratory: reports: Reviewed and negative GI: reports: Reviewed and negative : reports: Reviewed and negative Skin: reports: Reviewed and negative Musculoskeletal: reports: Neck pain, Joint pain Neurologic: reports: Reviewed and negative Psychiatric: reports: Reviewed and negative Endocrine: reports: Reviewed and negative Immunocompromised: reports: Reviewed and negative PD PAST MEDICAL HISTORY - Past Medical History Past Medical History: Yes Cardiovascular: Hypertension, High cholesterol, Coronary artery disease, [place], Atrial fibrillation Respiratory: Asthma, COPD Neuro: Dementia Endocrine/Autoimmune: HyPOthyroidism GI: Hiatal hernia : Incontinence HEENT: None Psych: Depression Musculoskeletal: Osteoarthritis, Fibromyalgia, Other Derm: None - Present Medications Home Medications: Ambulatory Orders Medication Instructions Recorded Confirmed Acetaminophen [Tylenol] 650 mg PO Q6H PRN 05/29/19 01/03/20 Apixaban [Eliquis] 5 mg PO BID 05/29/19 01/03/20 Budesonide/Formoterol Fumarate 2 puffs INH BID 05/29/19 01/03/20 [Symbicort 160-4.5 Mcg Inhaler] Famotidine 20 mg PO BID 05/29/19 01/03/20 Levothyroxine [Synthroid] 25 mcg PO DAILY 05/29/19 01/03/20 Metoprolol Succinate 25 mg PO DAILY 05/29/19 01/03/20 Oxybutynin Chloride [Ditropan Xl] 10 mg PO DAILY 05/29/19 01/03/20 Pregabalin 75 mg PO BID 05/29/19 01/03/20 Sennosides [Senna Laxative] 8.6 mg PO BID PRN 05/29/19 01/03/20 Simvastatin 40 mg PO QPM 05/29/19 01/03/20 Umeclidinium [place] [Incruse 1 puffs INH DAILY 05/29/19 01/03/20 Ellipta] Venlafaxine HCl [Venlafaxine HCl 3 tab PO DAILY 05/29/19 01/03/20 ER] haloperidoL [Haldol] 2 mg PO Q8H PRN #60 tablet 07/01/19 01/03/20 Aspirin 81 mg PO MOWEFR 09/10/19 01/03/20 LORazepam [Ativan] 0.5 mg PO Q4H PRN 09/10/19 01/03/20 Albuterol Sulf [Ventolin Hfa 1 - 2 puffs INH Q4H PRN 10/24/19 01/03/20 Inhaler] risperiDONE [RisperDAL] 0.25 mg PO QPM 10/24/19 01/03/20 - Allergies Allergies/Adverse Reactions: Allergies Allergy/AdvReac Type Severity Reaction Status Date / Time adhesive Allergy Unknown Verified 01/03/20 05:32 alendronate sodium Allergy Unknown Verified 01/03/20 05:32 cephalexin Allergy Unknown Verified 01/03/20 05:32 chlorhexidine Allergy Unknown Verified 01/03/20 05:32 ciprofloxacin [From Cipro] Allergy Unknown Verified 01/03/20 05:32 erythromycin base Allergy Unknown Verified 01/03/20 05:32 ether Allergy Unknown Verified 01/03/20 05:32 fentanyl Allergy Unknown Verified 01/03/20 05:32 hydromorphone Allergy Unknown Verified 01/03/20 05:32 Iodinated Contrast Media Allergy Unknown Verified 01/03/20 05:32 methadone Allergy Unknown Verified 01/03/20 05:32 nitrofurantoin Allergy Unknown Verified 01/03/20 05:32 Penicillins Allergy Unknown Verified 01/03/20 05:32 strawberry Allergy Unknown Verified 01/03/20 05:32 Sulfa (Sulfonamide Allergy Unknown Verified 01/03/20 05:32 Antibiotics) zolpidem Allergy Unknown Verified 01/03/20 05:32 streptomycin AdvReac Unknown Verified 01/03/20 05:32 - Social History Does the pt smoke?: No Smoking Status: Never smoker Does the pt drink ETOH?: No Does the pt have substance abuse?: No - Immunizations Immunizations are current?: No Immunizations: TDAP >10years/unknown - POLST Patient has POLST: No PD ED PE NORMAL - Vitals Vital signs reviewed: Yes - General General: No acute distress, Well developed/nourished, Other (Patient is alert and answers questions.) - HEENT HEENT: Atraumatic, PERRL, EOMI, Moist mucous membranes - Neck Neck: Supple, no meningeal sign - Cardiac Cardiac: RRR, No murmur, Strong equal pulses - Respiratory Respiratory: No respiratory distress, Clear bilaterally, Other (No chest wall or rib tenderness.) - Abdomen Abdomen: Soft, Non tender, Non distended - Back Back: No CVA TTP, No spinal TTP, Other (No posterior rib tenderness) - Derm Derm: Normal color, Warm and dry, No rash, Other (4 cm x 3 cm skin tear on the patient's lateral left upper arm.) - Extremities Extremities: No deformity, Other (Patient has diffuse tenderness to palpation over her left shoulder and left hip, though no deformity is noted. 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 She is oriented to self, but not place or time) - Psych Psych: Normal mood, Normal affect Results - Vitals Vitals: Vital Signs - 24 hr 01/03/20 01/03/20 01/03/20 05:26 06:49 07:22 Temperature 36.5 C Heart Rate 100 88 98 Respiratory 18 18 18 Rate Blood Pressure 121/49 L 124/76 113/57 L O2 Saturation 98 98 98 01/03/20 01/03/20 01/03/20 09:00 11:00 12:37 Temperature 36.2 C L Heart Rate 81 80 79 Respiratory 22 20 14 Rate Blood Pressure 138/59 H 115/82 H 105/88 H O2 Saturation 95 97 95 Oxygen O2 Source Room air - Labs Labs: Laboratory Tests 01/03/20 01/03/20 01/03/20 05:45 05:45 05:45 WBC 14.8 H RBC 3.77 L Hgb 10.4 L Hct 33.3 L MCV 88.3 MCH 27.6 MCHC 31.2 L RDW 16.3 H Plt Count 364 MPV 9.3 Neut # (Auto) 11.8 H Lymph # (Auto) 1.4 L [place] # (Auto) 1.3 H Eos # (Auto) 0.2 Baso # (Auto) 0.1 Absolute Nucleated RBC 0.00 Nucleated RBC % 0.0 Sodium 137 Potassium 4.1 Chloride 102 Carbon Dioxide 23 Anion Gap 12.0 BUN 24 H Creatinine 1.3 H Estimated GFR (MDRD) 40 L Glucose 132 H Calcium 9.8 Total Bilirubin 0.5 AST 28 ALT 25 Alkaline Phosphatase 140 H Total Creatine Kinase 29 Total Protein 8.5 H Albumin 3.6 Globulin 4.9 H Albumin/Globulin Ratio 0.7 L Lipase 29 Urine Color Urine Clarity Urine pH Ur Specific [place] Urine Protein Urine Glucose (UA) Urine Ketones Urine Occult Blood Urine Nitrite Urine Bilirubin Urine Urobilinogen Ur Leukocyte Esterase Urine RBC Urine WBC Urine WBC Clumps Ur Squamous Epith Cells Urine Bacteria Ur Microscopic Review Urine Culture Comments 01/03/20 09:05 WBC RBC Hgb Hct MCV MCH MCHC RDW Plt Count MPV Neut # (Auto) Lymph # (Auto) [place] # (Auto) Eos # (Auto) Baso # (Auto) Absolute Nucleated RBC Nucleated RBC % Sodium Potassium Chloride Carbon Dioxide Anion Gap BUN Creatinine Estimated GFR (MDRD) Glucose Calcium Total Bilirubin AST ALT Alkaline Phosphatase Total Creatine Kinase Total Protein Albumin Globulin Albumin/Globulin Ratio Lipase Urine Color YELLOW Urine Clarity CLOUDY Urine pH 6.0 Ur Specific [place] 1.020 Urine Protein 30 H Urine Glucose (UA) NEGATIVE Urine Ketones NEGATIVE Urine Occult Blood LARGE H Urine Nitrite POSITIVE H Urine Bilirubin NEGATIVE Urine Urobilinogen 0.2 (NORMAL) Ur Leukocyte Esterase LARGE H Urine RBC 6-10 H Urine WBC >25 H Urine WBC Clumps PRESENT Ur Squamous Epith Cells RARE Squamous Urine Bacteria Few Ur Microscopic Review INDICATED Urine Culture Comments INDICATED PD MEDICAL DECISION MAKING - ED course Complexity details: reviewed results, re-evaluated patient, considered differential, d/w patient ED course: Patient was worked up with labs, x-rays of hip and shoulder, and CT of head and neck. She was signed out to Dr. Plastino, pending results of imaging studies and final disposition. Departure - Departure Disposition: ED Place in Observation Clinical Impression: UTI (urinary tract infection), AMS (altered mental status) Discharge Date/Time: 01/03/20 13:44
[2020-01-03] MEDS ORDERED: ONDANSETRON ODT 4 MG TABLET TL STA (07:18)
--- NOTE | 2020-01-03 07:35 | XRAY Report ---
Reason: fall/pain Procedure Date: 01/03/2020 Accession Number: [id number] / [id number] Procedure: XR - Hip w/Pelvis 2-3V LT CPT Code: Final Report FULL RESULT: EXAM: LEFT HIP RADIOGRAPHY EXAM DATE: 01/03/2020 06:53 AM. CLINICAL HISTORY: Fall/pain. COMPARISON: None. TECHNIQUE: 2 views. FINDINGS: Bones: Probable remote fracture inferior left pubic ramus. Negative for left hip fracture. Joints: Normal. No dislocation. The hip joint space is preserved. Soft Tissues: Left ureteral stent. Pelvic floor surgery. IMPRESSION: Negative for left hip fracture. RADIA
--- NOTE | 2020-01-03 07:39 | CT Report ---
Reason: trauma,anticoagulated Procedure Date: 01/03/2020 Accession Number: [id number] / [id number] Procedure: CT - HEAD WO CPT Code: Final Report FULL RESULT: EXAM: CT HEAD EXAM DATE: 01/03/2020 07:06 AM. CLINICAL HISTORY: Trauma, anticoagulated. COMPARISON: None. TECHNIQUE: Multiaxial CT images were obtained from the foramen magnum to the vertex. Reformats: Sagittal and coronal. IV contrast: None. In accordance with CT protocol optimization, one or more of the following dose reduction techniques were utilized for this exam: automated exposure control, adjustment of mA and/or KV based on patient size, or use of iterative reconstructive technique. FINDINGS: Mild to moderate diffuse atrophy. Amorphous cerebral white matter hypoattenuation is likely from aging and chronic microangiopathy. No hydrocephalus, mass-effect or midline shift. No evidence for acute hemorrhage or stroke. No acute paranasal sinus opacification or displaced skull fracture. Cavernous carotid calcifications are consistent with intracranial atherosclerosis. Right greater than left TMJ DJD. Probable small perforation of the anterior nasal septum. Partially visualized finding suggestive of chronic bony fusion at the craniocervical junction. IMPRESSION: 1. No CT evidence of acute intracranial abnormality. 2. Atrophy, probable chronic microangiopathy and intracranial atherosclerosis. RADIA
--- NOTE | 2020-01-03 07:40 | XRAY Report ---
Reason: fall/pain Procedure Date: 01/03/2020 Accession Number: [id number] / [id number] Procedure: XR - Shoulder 3 View LT CPT Code: Final Report FULL RESULT: EXAM: LEFT SHOULDER RADIOGRAPHY EXAM DATE: 01/03/2020 06:53 AM. CLINICAL HISTORY: Fall/pain. COMPARISON: CHEST 1 VIEW 10/23/2019 7:46 PM. TECHNIQUE: 3 views. FINDINGS: Bones: Normal. No fracture or bone lesion. Joints: Widening of the acromioclavicular joint. Mild superior subluxation humerus. Negative for glenohumeral dislocation. Soft tissues: The visualized hemithorax is unremarkable. No soft tissue swelling. IMPRESSION: 1. Negative for fracture. 2. Widening of the acromioclavicular joint suggestive of AC joint separation. RADIA
--- NOTE | 2020-01-03 07:47 | CT Report ---
Reason: fall/pain Procedure Date: 01/03/2020 Accession Number: [id number] / [id number] Procedure: CT - CERVICAL SPINE WO CPT Code: Final Report FULL RESULT: EXAM: CT CERVICAL SPINE WITHOUT CONTRAST DATE: 01/03/2020 07:06 AM. HISTORY: Pain post injury after a fall. COMPARISONS: None. TECHNIQUE: Thin-section axial images were acquired of the cervical spine without contrast. Post-processing: Coronal and sagittal reformats. Other: None. In accordance with CT protocol optimization, one or more of the following dose reduction techniques were utilized for this exam: automated exposure control, adjustment of mA and/or KV based on patient size, or use of iterative reconstructive technique. FINDINGS: Probable generalized skeletal demineralization. Abnormal alignment including cervical levoscoliosis and chronic C6 on C7 anterolisthesis. Solid vertebra bony fusion of the cervical spine from the skull base/occiput through C7. Previous anterior diskectomies and fusions with interbody spacer placement and anterior plate and screw implant from C3-C5. Chronic craniocervical junction fusion. No recognizable anterior C1 vertebra arch, possibly assimilated into bone fusion between the odontoid and clivus. Severe disk degeneration at C7-T1 where there is also marked facet arthropathy especially on the right. No evidence for acute fracture. The bony contours of the cervical central canal are maintained except where mildly stenotic at the C7 level. Chronic bony foraminal stenosis at multiple levels, especially prominent to the right of midline at C4-C5 through C7-T1. No focal prevertebral soft tissue thickening or edema. Prominent multifocal large artery atherosclerotic calcification. Aberrant right subclavian artery. Central venous catheter on the left. IMPRESSION: 1. No evidence for acute fracture or dislocation. 2. Prominent chronic multilevel hypertrophic degenerative cervical spinal spondylosis, especially at the cervicothoracic junction. 3. Solid-appearing vertebra fusion from skull base/occiput inferiorly through C7. RADIA
[2020-01-03] MEDS ORDERED: SODIUM CHLORIDE 0.9% 1,000 ML IV STA (08:16)
--- NOTE | 2020-01-03 08:21 | ED Physician Documentation ---
History of Present Illness - Stated complaint Stated Complaint: FALL/ L SHOULER PX - Chief complaint Chief Complaint: Laceration - History obtained from History obtained from: Patient, EMS - History of Present Illness Timing: Today - Additonal information Additional information: 79-year-old female resident of [facility] was found on her floor at 4:30 AM this morning by staff. They are uncertain when she fell the patient is confused she has baseline dementia. The patient does not recall incident at all. Patient arrives to the emerge department prior to my arrival and initial evaluation is done direct by Dr. Washburn. Imaging was done to include the shoulder hip head and neck and no fractures have been identified. The patient does have urinary tract infection with greater than 25 white blood cells per high-power field elevated white count and increased confusion. She is volume depleted on interrogation of the inferior vena cava. Review of Systems Unable to obtain: Confused, Dementia GI: reports: Vomiting Neurologic: reports: Generalized weakness PD PAST MEDICAL HISTORY - Past Medical History Past Medical History: Yes Cardiovascular: Hypertension, High cholesterol, Coronary artery disease, [place], Atrial fibrillation Respiratory: Asthma, COPD Neuro: Dementia Endocrine/Autoimmune: HyPOthyroidism GI: Hiatal hernia : Incontinence HEENT: None Psych: Depression Musculoskeletal: Osteoarthritis, Fibromyalgia, Other Derm: None - Present Medications Home Medications: Ambulatory Orders Medication Instructions Recorded Confirmed Acetaminophen [Tylenol] 650 mg PO Q6H PRN 05/29/19 01/03/20 Apixaban [Eliquis] 5 mg PO BID 05/29/19 01/03/20 Budesonide/Formoterol Fumarate 2 puffs INH BID 05/29/19 01/03/20 [Symbicort 160-4.5 Mcg Inhaler] Famotidine 20 mg PO BID 05/29/19 01/03/20 Levothyroxine [Synthroid] 25 mcg PO DAILY 05/29/19 01/03/20 Metoprolol Succinate 25 mg PO DAILY 05/29/19 01/03/20 Oxybutynin Chloride [Ditropan Xl] 10 mg PO DAILY 05/29/19 01/03/20 Pregabalin 75 mg PO BID 05/29/19 01/03/20 Sennosides [Senna Laxative] 8.6 mg PO BID PRN 05/29/19 01/03/20 Simvastatin 40 mg PO QPM 05/29/19 01/03/20 Umeclidinium [place] [Incruse 1 puffs INH DAILY 05/29/19 01/03/20 Ellipta] Venlafaxine HCl [Venlafaxine HCl 3 tab PO DAILY 05/29/19 01/03/20 ER] haloperidoL [Haldol] 2 mg PO Q8H PRN #60 tablet 07/01/19 01/03/20 Aspirin 81 mg PO MOWEFR 09/10/19 01/03/20 LORazepam [Ativan] 0.5 mg PO Q4H PRN 09/10/19 01/03/20 Albuterol Sulf [Ventolin Hfa 1 - 2 puffs INH Q4H PRN 10/24/19 01/03/20 Inhaler] risperiDONE [RisperDAL] 0.25 mg PO QPM 10/24/19 01/03/20 - Allergies Allergies/Adverse Reactions: Allergies Allergy/AdvReac Type Severity Reaction Status Date / Time adhesive Allergy Unknown Verified 01/03/20 05:32 alendronate sodium Allergy Unknown Verified 01/03/20 05:32 cephalexin Allergy Unknown Verified 01/03/20 05:32 chlorhexidine Allergy Unknown Verified 01/03/20 05:32 ciprofloxacin [From Cipro] Allergy Unknown Verified 01/03/20 05:32 erythromycin base Allergy Unknown Verified 01/03/20 05:32 ether Allergy Unknown Verified 01/03/20 05:32 fentanyl Allergy Unknown Verified 01/03/20 05:32 hydromorphone Allergy Unknown Verified 01/03/20 05:32 Iodinated Contrast Media Allergy Unknown Verified 01/03/20 05:32 methadone Allergy Unknown Verified 01/03/20 05:32 nitrofurantoin Allergy Unknown Verified 01/03/20 05:32 Penicillins Allergy Unknown Verified 01/03/20 05:32 strawberry Allergy Unknown Verified 01/03/20 05:32 Sulfa (Sulfonamide Allergy Unknown Verified 01/03/20 05:32 Antibiotics) zolpidem Allergy Unknown Verified 01/03/20 05:32 streptomycin AdvReac Unknown Verified 01/03/20 05:32 Norflurane-Pentaflouropropane Allergy Unknown Uncoded 10/23/19 18:26 - Social History Does the pt smoke?: No Smoking Status: Never smoker Does the pt drink ETOH?: No Does the pt have substance abuse?: No - Immunizations Immunizations are current?: No Immunizations: TDAP >10years/unknown - POLST Patient has POLST: No PD ED PE NORMAL - Vitals Vital signs reviewed: Yes (wide pulse pressure) - General General: No acute distress, Other (Thin elderly female who is asleep. ) - HEENT HEENT: Atraumatic - Neck Neck: Supple, no meningeal sign - Cardiac Cardiac: RRR, No murmur - Respiratory Respiratory: No respiratory distress, Clear bilaterally - Abdomen Abdomen: Soft, Non tender - Derm Derm: Normal color, Warm and dry - Extremities Extremities: No deformity, No edema, No calf tenderness / cord - Neuro Neuro: No motor deficit, No sensory deficit Eye Opening: To Pain Motor: Obeys Commands Verbal: Confused GCS Score: 12 - Psych Psych: Normal mood, Normal affect Results - Vitals Vitals: Vital Signs - 24 hr 01/03/20 01/03/20 01/03/20 05:26 06:49 07:22 Temperature 36.5 C Heart Rate 100 88 98 Respiratory 18 18 18 Rate Blood Pressure 121/49 L 124/76 113/57 L O2 Saturation 98 98 98 01/03/20 01/03/20 01/03/20 09:00 11:00 12:37 Temperature 36.2 C L Heart Rate 81 80 79 Respiratory 22 20 14 Rate Blood Pressure 138/59 H 115/82 H 105/88 H O2 Saturation 95 97 95 Oxygen O2 Source Room air - Labs Labs: Laboratory Tests 01/03/20 01/03/20 01/03/20 05:45 05:45 09:05 WBC 14.8 H RBC 3.77 L Hgb 10.4 L Hct 33.3 L MCV 88.3 MCH 27.6 MCHC 31.2 L RDW 16.3 H Plt Count 364 MPV 9.3 Neut # (Auto) 11.8 H Lymph # (Auto) 1.4 L [place] # (Auto) 1.3 H Eos # (Auto) 0.2 Baso # (Auto) 0.1 Absolute Nucleated RBC 0.00 Nucleated RBC % 0.0 Sodium 137 Potassium 4.1 Chloride 102 Carbon Dioxide 23 Anion Gap 12.0 BUN 24 H Creatinine 1.3 H Estimated GFR (MDRD) 40 L Glucose 132 H Calcium 9.8 Total Bilirubin 0.5 AST 28 ALT 25 Alkaline Phosphatase 140 H Total Protein 8.5 H Albumin 3.6 Globulin 4.9 H Albumin/Globulin Ratio 0.7 L Lipase 29 Urine Color YELLOW Urine Clarity CLOUDY Urine pH 6.0 Ur Specific [place] 1.020 Urine Protein 30 H Urine Glucose (UA) NEGATIVE Urine Ketones NEGATIVE Urine Occult Blood LARGE H Urine Nitrite POSITIVE H Urine Bilirubin NEGATIVE Urine Urobilinogen 0.2 (NORMAL) Ur Leukocyte Esterase LARGE H Urine RBC 6-10 H Urine WBC >25 H Urine WBC Clumps PRESENT Ur Squamous Epith Cells RARE Squamous Urine Bacteria Few Ur Microscopic Review INDICATED Urine Culture Comments INDICATED - Rads (name of study) CT head Radiology: Prelim report reviewed, EMP read indepedently, See rad report CT cervical spine Radiology: Prelim report reviewed (Impression: 1. No evidence for acute fracture or dislocation.2 Prominent chronic multilevel hypertrophic degenerative cervical spine spondylosis, especially at the cervical thoracic junction. 3. Solid-appearing vertebral fusion from skull base/occiput inferiorly through C7.), EMP read indepedently, See rad report Left shoulder Radiology: Prelim report reviewed (Impression: 1. Negative for fracture. 2. Widening of the acromioclavicular joint suggestive of AC separation.), EMP read indepedently, See rad report Left hip Radiology: Prelim report reviewed (Impression: Negative for left hip fracture.), EMP read indepedently, See rad report Procedures - IVC sono (time) 0815 Bedside IVC sono: IVC measures (cm) (0.77), Dehydration (est 2 liter deficit) PD MEDICAL DECISION MAKING - ED course Complexity details: reviewed old records, reviewed results, re-evaluated patient, considered differential, d/w patient ED course: 79-year-old female with a fall in the care home this morning with pain in her left shoulder and left hip does not have evidence of fracture on imaging. She is withdrawn, tachycarduc and has a widened pulse pressure. Interrogation the inferior vena cava reveals a nearly 2 L deficit in volume and she is given saline. We will recheck the patient's urine as this is been her most recent pathology 2 months ago. There is obvious evidence of urinary tract infection and the patient is given Rocephin intravenously as well. Patient remains withdrawn and appears weak. She does have some bilious vomitus around her mouth. Dr. Marquez is consulted in the case for admission and will admit patient to observation for continued care. Departure - Departure Disposition: ED Place in Observation Clinical Impression: UTI (urinary tract infection) Qualifiers: Urinary tract infection type: acute cystitis Hematuria presence: with hematuria Qualified Code(s): N30.01 - Acute cystitis with hematuria AMS (altered mental status) Qualifiers: Altered mental status type: stupor Qualified Code(s): R40.1 - Stupor
[2020-01-03 09:19] LABS: BILIRUBIN,URINE NEGATIVE (NEGATIVE); GLUCOSE, URINE (UA) NEGATIVE (NEGATIVE); KETONES,URINE (UA) NEGATIVE (NEGATIVE); LEUKOCYTE ESTERASE, URINE LARGE (NEGATIVE); NITRITE,URINE POSITIVE (NEGATIVE); OCCULT BLOOD,URINE LARGE (NEGATIVE); PROTEIN,URINE 30 mg/dL (NEGATIVE); UROBILINOGEN,URINE 0.2 (NORMAL) E.U./dL (NORMAL)
[2020-01-03 09:28] LABS: CLARITY,URINE CLOUDY (CLEAR)
[2020-01-03 09:35] LABS: WBC CLUMPS,URINE PRESENT
[2020-01-03 09:36] LABS: BACTERIA,URINE Few /HPF (None Seen); SQUAMOUS EPITHELIAL CELL,UR RARE Squamous (<= Few)
[2020-01-03] MEDS ORDERED: cefTRIAXone 1 GM in SODIUM CHLORIDE 0.9% MINIBAG 100 ML IV STA (09:51)
[2020-01-03] MEDS ORDERED: SODIUM CHLORIDE FLUSH 0.9% 10 ML SYRINGE IVP PRN ×2 (13:08→13:55)
[2020-01-03] MEDS ORDERED: ONDANSETRON 4 MG/2 ML VIAL IVP PRN ×2 (13:08→13:55)
[2020-01-03] MEDS ORDERED: ACETAMINOPHEN 325 MG TABLET PO PRN (13:08)
[2020-01-03] MEDS ORDERED: LORazepam 0.5 MG TABLET PO PRN ×2 (13:20→13:55)
[2020-01-03] MEDS ORDERED: haloperidoL 1 MG TABLET PO PRN ×2 (13:20→13:55)
[2020-01-03] MEDS ORDERED: ALBUTEROL NEB 2.5 MG/3 ML INH PRN ×2 (13:22→13:55)
--- NOTE | 2020-01-03 13:35 | HISTORY & PHYSICAL EXAMINATION ---
Chief Complaint - Chief Complaint Chief Complaint: fall History of Present Illness - Admitted From Admitted From:: ER - History Obtained From History obtained from: ER Exam Limitations: pt's confuse - History of Present Illness HPI Comment/Other: This is a 79-year-old female with a past medical history significant for dementia with behavioral disturbances, atrial fibrillation on Eliquis, coronary artery disease, recurrent UTIs, kidney stone, HTN, hypothyroidism, COPD/Asthma, who presents today from [facility] due to fall. pt was found on her floor at 4:30 AM this morning by staff. Patient is brought to the emergency department by EMS. The patient cannot tell how she fell and thinks that she may have "slipped on water" due to her medical conditions with baseline of advance dementia. She report that her left shoulder and left hip are hurting. She report she hit her head and report she has neck pain, then she has "lots of pain". CT of head, neck, left shoulder, left hip all on unremarkable for fracture. Route lab test reveals pt has elevated WBC, UTI analysis indicate pt has UTI. Pt Patient is afebrile, otherwise patient is hemodynamically stable. History - Past Medical History Cardiovascular: reports: Hypertension, High cholesterol, Coronary artery disease, [place], Atrial fibrillation Respiratory: reports: Asthma, COPD Neuro: reports: Dementia Endocrine/Autoimmune: reports: HyPOthyroidism GI: reports: Hiatal hernia : reports: Incontinence HEENT: reports: None Psych: reports: Depression Musculoskeletal: reports: Osteoarthritis, Fibromyalgia, Other Derm: reports: None MRSA Hx?: No - Family & Social History Family History Comment/Other: Patient is unable to provide her family history. I did ask her son but he is unaware of any significant family history to his knowledge. Social History Notes: She resides at [facility] and [place]. I am unable to obtain any further social history. - POLST Patient has POLST: No Meds/Allgy - Home Medications Home Medications: Ambulatory Orders Medication Instructions Recorded Confirmed Acetaminophen [Tylenol] 650 mg PO Q6H PRN 05/29/19 01/03/20 Apixaban [Eliquis] 5 mg PO BID 05/29/19 01/03/20 Budesonide/Formoterol Fumarate 2 puffs INH BID 05/29/19 01/03/20 [Symbicort 160-4.5 Mcg Inhaler] Famotidine 20 mg PO BID 05/29/19 01/03/20 Levothyroxine [Synthroid] 25 mcg PO DAILY 05/29/19 01/03/20 Metoprolol Succinate 25 mg PO DAILY 05/29/19 01/03/20 Oxybutynin Chloride [Ditropan Xl] 10 mg PO DAILY 05/29/19 01/03/20 Pregabalin 75 mg PO BID 05/29/19 01/03/20 Sennosides [Senna Laxative] 8.6 mg PO BID PRN 05/29/19 01/03/20 Simvastatin 40 mg PO QPM 05/29/19 01/03/20 Umeclidinium [place] [Incruse 1 puffs INH DAILY 05/29/19 01/03/20 Ellipta] Venlafaxine HCl [Venlafaxine HCl 3 tab PO DAILY 05/29/19 01/03/20 ER] haloperidoL [Haldol] 2 mg PO Q8H PRN #60 tablet 07/01/19 01/03/20 Aspirin 81 mg PO MOWEFR 09/10/19 01/03/20 LORazepam [Ativan] 0.5 mg PO Q4H PRN 09/10/19 01/03/20 Albuterol Sulf [Ventolin Hfa 1 - 2 puffs INH Q4H PRN 10/24/19 01/03/20 Inhaler] risperiDONE [RisperDAL] 0.25 mg PO QPM 10/24/19 01/03/20 - Allergies Allergies/Adverse Reactions: Allergies Allergy/AdvReac Type Severity Reaction Status Date / Time adhesive Allergy Unknown Verified 01/03/20 05:32 alendronate sodium Allergy Unknown Verified 01/03/20 05:32 cephalexin Allergy Unknown Verified 01/03/20 05:32 chlorhexidine Allergy Unknown Verified 01/03/20 05:32 ciprofloxacin [From Cipro] Allergy Unknown Verified 01/03/20 05:32 erythromycin base Allergy Unknown Verified 01/03/20 05:32 ether Allergy Unknown Verified 01/03/20 05:32 fentanyl Allergy Unknown Verified 01/03/20 05:32 hydromorphone Allergy Unknown Verified 01/03/20 05:32 Iodinated Contrast Media Allergy Unknown Verified 01/03/20 05:32 methadone Allergy Unknown Verified 01/03/20 05:32 nitrofurantoin Allergy Unknown Verified 01/03/20 05:32 Penicillins Allergy Unknown Verified 01/03/20 05:32 strawberry Allergy Unknown Verified 01/03/20 05:32 Sulfa (Sulfonamide Allergy Unknown Verified 01/03/20 05:32 Antibiotics) zolpidem Allergy Unknown Verified 01/03/20 05:32 streptomycin AdvReac Unknown Verified 01/03/20 05:32 Review of Systems - All Other Systems All Other Systems: reports: Other (pt is confused as her baseline, pt can not provide ROS) Exam - Vital Signs Vital Signs: Vital Signs x48h Temp Pulse Resp BP Pulse Ox 01/03/20 12:37 79 14 105/88 H 95 01/03/20 11:00 80 20 115/82 H 97 01/03/20 09:00 36.2 C L 81 22 138/59 H 95 01/03/20 07:22 98 18 113/57 L 98 01/03/20 06:49 88 18 124/76 98 - Physical Exam General Appearance: positive: No acute distress, Alert. negative: Lethargic Eyes Bilateral: positive: Normal inspection, PERRL, No lid inflammation ENT: positive: ENT inspection nml, Pharynx nml, No signs of dehydration. negative: Purulent nasal drainage Neck: positive: Nml inspection, Thyroid nml, Trachea midline, Thyromegaly. negative: Stiff neck, Tracheal deviation Respiratory: positive: Chest non-tender, No respiratory distress, Breath sounds nml. negative: Wheezes, Rales, Rhonchi Cardiovascular: positive: Regular rate & rhythm, No murmur, No gallop. negative: Irregularly irregular, Tachycardia, Bradycardia, Systolic murmur, Diastolic murmur Peripheral Pulses: positive: 2+ Abdomen: positive: Non-tender, No organomegaly, Nml bowel sounds, No distention. negative: Tenderness, Guarding, Rebound Back: positive: Nml inspection. negative: CVA tenderness (R), CVA tenderness (L) Skin: positive: Color nml, No rash, Warm, Dry. negative: Cyanosis, Diaphoresis, Pallor Extremities: positive: Non-tender. negative: Calf tenderness, Criselda's sign/cords Neurologic/Psychiatric: positive: Sensation nml. negative: Oriented x3, Weakn ess, Sensory loss, Facial droop Conclusion/Plan - Problem List (1) Fall Conclusion/Plan: Patient had unwitnessed fall in the assisted, patient had a CAT scan of the head neck and shoulder and hip on the left side, all reveal unremarkable. plan: pain control, fall precaution. consult with PT/OT (2) UTI (urinary tract infection) Conclusion/Plan: Patient had recurrent UTI, according to previous urine culture and sensitivity study, we will use Rocephin treated the patient, then follow-up urine culture Qualifiers: Urinary tract infection type: acute cystitis Hematuria presence: with hematuria Qualified Code(s): N30.01 - Acute cystitis with hematuria (3) AMS (altered mental status) Conclusion/Plan: CT of the head is unremarkable, patient has baseline for advanced dementia, and the patient have a acute UTI now, it is likely combination of the patient history of advanced dimension plus an acute urinary tract infection. neuro check Qualifiers: Altered mental status type: stupor Qualified Code(s): R40.1 - Stupor (4) Atrial fibrillation Conclusion/Plan: Patient has history of atrial fibrillation, now patient's heart rate is controlled, will continue patient home medication metoprolol, continue Eliquis (5) HTN (hypertension) Conclusion/Plan: Patient blood pressure is controlled now, will continue home blood pressure medicine metoprolol, continue vital signs monitor (6) COPD with asthma Conclusion/Plan: Patient has history of COPD and asthma, but the patient has no acute COPD exacerbation or respiratory acute distress, continue PRN home medication albut paulo and duoneb (7) Advanced dementia Conclusion/Plan: Patient has history advanced dementia, with behavioral disturbances, we will continue patient home medication, will continue support (8) Hypothyroidism Conclusion/Plan: We will check TSH, continue home medication (9) GORDON (acute kidney injury) Conclusion/Plan: Patient's creatinine is 1.3, patient has baseline creatinine is 1.0, is likely from patient dehydration, will continue hydration for patient, continue lab test monitor - Lab Results Fish Bones: 01/03/20 05:45 01/03/20 05:45 Core Measures - Anticipated LOS I expect patient to be DC'd or transferred within 96 hours.: Yes - DVT/VTE - Prophylaxis VTE/DVT Device ordered at admit?: Yes VTE/DVT Prophylaxis med ordered at admit?: Yes
[2020-01-03] MEDS ORDERED: ASPIRIN CHEW 81 MG TABLET PO SCH (14:00)
[2020-01-03] MEDS ORDERED: SODIUM CHLORIDE 0.9% 1,000 ML IV SCH ×2 (14:00)
--- NOTE | 2020-01-03 14:21 | PHARMACY PROGRESS NOTE ---
- Best Possible Medication History Admit Date and Time: 01/03/20 1309 Processed by: Nursing Medication History completed: Yes As the person ultimately responsible for medication therapy, providers are able to order a medication from an existing home medication list in [facility] via the "Reconcile Routine" prior to Confirmation of that medication by shipping support clerk. Such practice is discouraged except when the physician, in their clinical judgment, deems that a medical need exists for a medication without regard to previous use.
[2020-01-03] MEDS: ACETAMINOPHEN 325 MG TABLET PO PRN ×2 (14:26→20:32)
[2020-01-03] MEDS: SODIUM CHLORIDE FLUSH 0.9% 10 ML SYRINGE IVP SCH ×2 (15:52→23:30)
[2020-01-03] MEDS ORDERED: SODIUM CHLORIDE FLUSH 0.9% 10 ML SYRINGE IVP SCH (17:00)
[2020-01-03] MEDS: oxyCODONE 5 MG TABLET PO PRN ×2 (17:47→22:22)
[2020-01-03] MEDS: PREGABALIN 25 MG CAPSULE PO SCH (20:31)
[2020-01-03] MEDS: APIXABAN 5 MG TABLET PO SCH (20:31)
[2020-01-03] MEDS: risperiDONE 0.25 MG TABLET PO SCH (20:32)
[2020-01-03] MEDS: IPRATROPIUM/ALBUTEROL 3 ML NEB INH PRN (20:33)
[2020-01-03] MEDS: FORMOTEROL FUMARATE NEB 20 MCG/2 ML INH SCH (20:34)
[2020-01-03] MEDS: BUDESONIDE 0.5 MG/2 ML NEB INH SCH (20:34)
[2020-01-03] MEDS ORDERED: APIXABAN 5 MG TABLET PO SCH (21:00)
[2020-01-03] MEDS ORDERED: FAMOTIDINE 20 MG TABLET PO SCH (21:00)
[2020-01-03] MEDS ORDERED: risperiDONE 0.25 MG TABLET PO SCH (21:00)
[2020-01-03] MEDS ORDERED: PREGABALIN 75 MG PO SCH (21:00)
--- NOTE | 2020-01-03 22:49 | XRAY Report ---
Reason: pain, fall Procedure Date: 01/03/2020 Accession Number: [id number] / [id number] Procedure: XR - Elbow 3 View LT CPT Code: Final Report FULL RESULT: EXAM: LEFT ELBOW RADIOGRAPHY EXAM DATE: 01/03/2020 08:43 PM. CLINICAL HISTORY: Elbow pain after injury. COMPARISON: None. TECHNIQUE: 3 views. FINDINGS: Bones: No acute fracture seen. Joints: No dislocation seen. Joint spaces appear preserved. No definite joint effusion. Soft Tissues: Soft tissue swelling with gas in the soft tissues. IMPRESSION: 1. No acute fracture or dislocation seen. 2. Soft tissue swelling with gas in the soft tissues. RADIA
[2020-01-04 04:53] LABS: BASOPHILS # (AUTO) 0.1 10^3/uL (0.0-0.1); BASOPHILS % (AUTO) 0.6 %; EOSINOPHILS # (AUTO) 0.4 10^3/uL (0.0-0.7); EOSINOPHILS % (AUTO) 3.8 %; LYMPHOCYTES # (AUTO) 1.7 10^3/uL (1.5-3.5); LYMPHOCYTES % (AUTO) 17.1 %; MEAN CORPUSCULAR HEMOGLOBIN 28.2 pg (27.0-31.0); MEAN CORPUSCULAR VOLUME 90.9 fL (81.0-99.0); MEAN PLATELET VOLUME 9.3 fL (7.9-10.8); MONOCYTES # (AUTO) 1.1 10^3/uL (0.0-1.0); MONOCYTES % (AUTO) 11.2 %; NEUTROPHILS # (AUTO) 6.6 10^3/uL (1.5-6.6); NEUTROPHILS % (AUTO) 66.8 %; PLT - PLATELET COUNT 271 10^3/uL (130-450); RED BLOOD COUNT 3.19 10^6/uL (4.20-5.40); RED CELL DISTRIBUTION WIDTH 16.7 % (12.0-15.0); WHITE BLOOD COUNT 9.9 x10^3/uL (4.8-10.8)
[2020-01-04 05:02] LABS: CALCIUM 8.8 mg/dL (8.5-10.3); CREATININE 1.2 mg/dL (0.4-1.0); MAGNESIUM 2.4 mg/dL (1.7-2.8)
[2020-01-04] MEDS: LEVOTHYROXINE 25 MCG TABLET PO SCH (06:23)
[2020-01-04] MEDS: BUDESONIDE 0.5 MG/2 ML NEB INH SCH ×2 (07:09→19:39)
[2020-01-04] MEDS: FORMOTEROL FUMARATE NEB 20 MCG/2 ML INH SCH ×2 (07:09→19:39)
[2020-01-04] MEDS: OXYBUTYNIN 5MG TABLET PO SCH ×2 (08:14→19:59)
[2020-01-04] MEDS: PREGABALIN 25 MG CAPSULE PO SCH ×2 (08:14→19:59)
[2020-01-04] MEDS: METOPROLOL SUCCINATE 25 MG TABLET PO SCH (08:14)
[2020-01-04] MEDS: APIXABAN 5 MG TABLET PO SCH ×2 (08:14→19:59)
[2020-01-04] MEDS: FAMOTIDINE 20 MG TABLET PO SCH (08:14)
[2020-01-04] MEDS: SODIUM CHLORIDE FLUSH 0.9% 10 ML SYRINGE IVP SCH ×3 (08:15→23:55)
[2020-01-04] MEDS ORDERED: METOPROLOL SUCCINATE 25 MG TABLET PO SCH (09:00)
[2020-01-04] MEDS ORDERED: LEVOTHYROXINE 25 MCG TABLET PO SCH (09:00)
[2020-01-04] MEDS ORDERED: OXYBUTYNIN CHLORIDE 10 MG PO SCH (09:00)
[2020-01-04] MEDS ORDERED: cefTRIAXone 1 GM in SODIUM CHLORIDE 0.9% MINIBAG 100 ML IV SCH ×4 (09:00)
--- NOTE | 2020-01-04 10:24 | PROVIDER PROGRESS NOTE ---
Subjective - Prog Note Date Prog Note Date: 01/04/20 Prog Note Time: 10:31 - Subjective Subjective: She is sitting upright in bed. Eyes closed. Sleeping. Breakfast is in front of her and she has not gotten to it. Nursing reports that she has had a aashish odiazepine and opiate. She may be just very sedated. But no events overnight. Quiet, cooperative. No fever spikes. Current Medications - Current Medications Current Medications: Active Medications Acetaminophen (Tylenol) 650 mg PO Q4HR PRN PRN Reason: Pain 1 to 4 Last Admin: 01/03/20 20:32 Dose: 650 mg Albuterol () 2.5 mg INH RTQ4H PRN PRN Reason: Wheezing Albuterol/Ipratropium (Duoneb) 3 ml INH RTQID PRN PRN Reason: Shortness of Air/Wheezing Last Admin: 01/03/20 20:33 Dose: 3 ml Apixaban (Eliquis) 5 mg PO BID [facility] Last Admin: 01/04/20 08:14 Dose: 5 mg Aspirin (St Rajendra Aspirin) 81 mg PO [id number]@0900 [facility] Budesonide (Pulmicort) 0.5 mg INH RTBID [facility] Last Admin: 01/04/20 07:09 Dose: 0.5 mg Famotidine (Pepcid) 20 mg PO DAILY [facility] Last Admin: 01/04/20 08:14 Dose: 20 mg Formoterol Fumarate (Perforomist) 20 mcg INH RTBID [facility] Last Admin: 01/04/20 07:09 Dose: 20 mcg Haloperidol (Haldol) 2 mg PO Q8H PRN PRN Reason: Agitation Ceftriaxone Sodium 1 gm/ (Sodium Chloride) 100 mls @ 200 mls/hr IV DAILY [facility] Last Infusion: 01/04/20 09:04 Dose: Infused Levothyroxine Sodium (Synthroid) 25 mcg PO QDAC [facility] Last Admin: 01/04/20 06:23 Dose: 25 mcg Lorazepam (Ativan) 0.5 mg PO Q4H PRN PRN Reason: Anxiety Last Admin: 01/03/20 22:22 Dose: 0.5 mg Metoprolol Succinate (Toprol Xl) 25 mg PO DAILY [facility] Last Admin: 01/04/20 08:14 Dose: Not Given Ondansetron HCl (Zofran Inj) 4 mg IVP Q6HR PRN PRN Reason: Nausea / Vomiting Oxybutynin Chloride (Ditropan) 5 mg PO BID [facility] Last Admin: 01/04/20 08:14 Dose: 5 mg Oxycodone HCl (Roxicodone) 5 mg PO Q4HR PRN PRN Reason: PAIN Last Admin: 01/03/20 22:22 Dose: 5 mg Pregabalin (Lyrica) 75 mg PO BID [facility] Last Admin: 01/04/20 08:14 Dose: 75 mg Risperidone (Risperdal) 0.25 mg PO QPM [facility] Last Admin: 01/03/20 20:32 Dose: 0.25 mg Sodium Chloride (Normal Saline Flush 0.9%) 10 ml IVP PRN PRN PRN Reason: NEEDED PER PROVIDER ORDERS Sodium Chloride (Normal Saline Flush 0.9%) 10 ml IVP 0100,0900,1700 [facility] Last Admin: 01/04/20 08:15 Dose: 10 ml Acetaminophen [Tylenol] 650 mg PO Q6H PRN 05/29/19 Apixaban [Eliquis] 5 mg PO BID 05/29/19 Budesonide/Formoterol Fumarate [Symbicort 160-4.5 Mcg Inhaler] 2 puffs INH BID 05/29/19 Famotidine 20 mg PO BID 05/29/19 Levothyroxine [Synthroid] 25 mcg PO DAILY 05/29/19 Metoprolol Succinate 25 mg PO DAILY 05/29/19 Oxybutynin Chloride [Ditropan Xl] 10 mg PO DAILY 05/29/19 Pregabalin 75 mg PO BID 05/29/19 Sennosides [Senna Laxative] 8.6 mg PO BID PRN 05/29/19 Simvastatin 40 mg PO QPM 05/29/19 Umeclidinium [place] [Incruse Ellipta] 1 puffs INH DAILY 05/29/19 Venlafaxine HCl [Venlafaxine HCl ER] 3 tab PO DAILY 05/29/19 Aspirin 81 mg PO MOWEFR 09/10/19 LORazepam [Ativan] 0.5 mg PO Q4H PRN 09/10/19 Albuterol Sulf [Ventolin Hfa Inhaler] 1 - 2 puffs INH Q4H PRN 10/24/19 risperiDONE [RisperDAL] 0.25 mg PO QPM 10/24/19 Objective - Vital Signs/Intake & Output Reviewed Vital Signs: Yes Vital Signs: Vital Signs x48h Temp Pulse Pulse Resp BP Pulse Ox 01/04/20 07:39 36.8 C 78 16 108/35 L 95 01/04/20 07:12 74 16 01/04/20 05:11 36.6 C 77 16 94 Intake & Output: Intake & Output 01/01/20 01/02/20 01/03/20 01/04/20 23:59 23:59 23:59 23:59 Intake Total 1950 1460 Output Total 250 1100 Balance 1700 360 - Objective General Appearance: positive: No acute distress, Lethargic, Other (Upright elderly woman who is 5 foot 3 inches tall and weighs 59.5 kg. Asleep, does not awaken to my touch other than to open eyes briefly and then close them again) Eyes Bilateral: positive: PERRL ENT: positive: Dry mucous membranes Neck: positive: No JVD. negative: Stiff neck, Carotid bruit Respiratory: positive: Chest non-tender, No respiratory distress. negative: Wheezes, Rales, Rhonchi - Lab Results Fish Bones: 01/04/20 04:35 01/04/20 04:35 Other Labs: Lab Results x24hrs 01/04/20 01/04/20 01/03/20 Range/Units 04:35 04:35 05:45 WBC 9.9 (4.8-10.8) x10^3/uL RBC 3.19 L (4.20-5.40) 10^6/uL Hgb 9.0 L (12.0-16.0) g/dL Hct 29.0 L (37.0-47.0) % MCV 90.9 (81.0-99.0) fL MCH 28.2 (27.0-31.0) pg MCHC 31.0 L (32.0-36.0) g/dL RDW 16.7 H (12.0-15.0) % Plt Count 271 (130-450) 10^3/uL MPV 9.3 (7.9-10.8) fL Neut # (Auto) 6.6 (1.5-6.6) 10^3/uL Lymph # (Auto) 1.7 (1.5-3.5) 10^3/uL [place] # (Auto) 1.1 H (0.0-1.0) 10^3/uL Eos # (Auto) 0.4 (0.0-0.7) 10^3/uL Baso # (Auto) 0.1 (0.0-0.1) 10^3/uL Absolute Nucleated RBC 0.00 x10^3/uL Nucleated RBC % 0.0 /100WBC Sodium 140 (135-145) mmol/L Potassium 4.2 (3.5-5.0) mmol/L Chloride 108 (101-111) mmol/L Carbon Dioxide 25 (21-32) mmol/L Anion Gap 7.0 (6-13) BUN 16 (6-20) mg/dL Creatinine 1.2 H (0.4-1.0) mg/dL Estimated GFR (MDRD) 43 L (>89) Glucose 98 (70-100) mg/dL Calcium 8.8 (8.5-10.3) mg/dL Magnesium 2.4 (1.7-2.8) mg/dL Total Creatine Kinase 29 (22-269) IU/L ABX Reporting Has patient been on IV antibiotics over the past 48 hours?: Yes Assessment/Plan - Problem List (1) UTI (urinary tract infection) Impression: Patient has recurrent UTIs, so using previous urine culture and sensitivity study, we will use Rocephin treated the patient, then follow-up urine culture. 01/03: White cell count has gone from 14.8-9.9. Culture is E. coli. Also there is some gram-positive. She is afebrile. Blood pressure a little low at 108/35. change to po abx. and assess for recurrence of fever or elevated wbc. Qualifiers: Urinary tract infection type: acute cystitis Hematuria presence: with hematuria Qualified Code(s): N30.01 - Acute cystitis with hematuria (3) AMS (altered mental status) Conclusion/Plan: CT of the head is unremarkable, patient has baseline advanced dementia, and the patient has an acute UTI now, so AMS likely combination of the patient history of advanced dimension plus an acute urinary tract infection. This morning she is lethargic, sitting up in bed, and nursing reports that she received an opiate and benzodiazepine. She gets those on a regular basis at her facility. Lorazepam is every 4 hours as needed, venlafaxine, Haldol, respiradal are also noted. She is also on pregabalin twice daily. Watching her today on her usual medications, indicates that she may be getting too much medication in the outpatient setting and may be the reason that contributed to her fall. Physical therapy has seen her and she is very sedated. I will reduce doseage on sedating meds. Qualifiers: Altered mental status type: stupor Qualified Code(s): R40.1 - Stupor (4) Atrial fibrillation Conclusion/Plan: Patient has history of atrial fibrillation, now patient's heart rate is co ntrolled, will continue patient home medication metoprolol for rate control, and continue Eliquis for anticoagulation (5) HTN (hypertension) Conclusion/Plan: Patient blood pressure is controlled now, will continue home blood pressure medicine metoprolol, continue vital signs monitor. Pulse is in the 70s and systolic 108. Will recheck and see if fluid bolus needed. (6) COPD with asthma controlled. Conclusion/Plan: Patient has history of COPD and asthma, but the patient has no acute COPD exacerbation or respiratory acute distress, continue PRN home medication albuterol and duoneb (7) Advanced dementia Conclusion/Plan: Patient has history advanced dementia, with behavioral disturbances, we will continue patient home medication, will continue support No change in status here. (8) Hypothyroidism Conclusion/Plan: We will check TSH, continue home medication. Ordered lab draw for today. (9) GORDON (acute kidney injury) Conclusion/Plan: Patient's creatinine is 1.3, patient has baseline creatinine is 1.0, is likely from patient dehydration, will continue hydration for patient, continue lab test monitor. today she is 1.2 so she is improving.
[2020-01-04] MEDS: CEFPODOXIME PROXETIL 100 MG TABLET PO SCH ×2 (14:34→19:59)
[2020-01-04] MEDS: ACETAMINOPHEN 325 MG TABLET PO PRN (16:44)
[2020-01-04] MEDS: oxyCODONE 5 MG TABLET PO PRN (19:15)
[2020-01-04] MEDS: risperiDONE 0.25 MG TABLET PO SCH (19:59)
[2020-01-04] MEDS: DOCUSATE SODIUM 250 MG CAPSULE PO SCH (20:06)
[2020-01-05 05:16] LABS: BASOPHILS # (AUTO) 0.1 10^3/uL (0.0-0.1); BASOPHILS % (AUTO) 0.7 %; EOSINOPHILS # (AUTO) 0.4 10^3/uL (0.0-0.7); EOSINOPHILS % (AUTO) 3.9 %; HGB - HEMOGLOBIN 8.9 g/dL (12.0-16.0); LYMPHOCYTES # (AUTO) 1.8 10^3/uL (1.5-3.5); LYMPHOCYTES % (AUTO) 19.6 %; MEAN CORPUSCULAR HEMOGLOBIN 27.4 pg (27.0-31.0); MEAN CORPUSCULAR HGB CONC 30.3 g/dL (32.0-36.0); MEAN CORPUSCULAR VOLUME 90.5 fL (81.0-99.0); MEAN PLATELET VOLUME 9.2 fL (7.9-10.8); MONOCYTES # (AUTO) 0.9 10^3/uL (0.0-1.0); MONOCYTES % (AUTO) 10.4 %; NEUTROPHILS # (AUTO) 5.8 10^3/uL (1.5-6.6); NEUTROPHILS % (AUTO) 64.8 %; PLT - PLATELET COUNT 289 10^3/uL (130-450); RED BLOOD COUNT 3.25 10^6/uL (4.20-5.40); RED CELL DISTRIBUTION WIDTH 16.8 % (12.0-15.0); WHITE BLOOD COUNT 8.9 x10^3/uL (4.8-10.8)
[2020-01-05 05:25] LABS: CREATININE 1.4 mg/dL (0.4-1.0); MAGNESIUM 2.4 mg/dL (1.7-2.8)
[2020-01-05] MEDS: LEVOTHYROXINE 25 MCG TABLET PO SCH (05:59)
[2020-01-05] MEDS: FORMOTEROL FUMARATE NEB 20 MCG/2 ML INH SCH ×2 (07:09→19:52)
[2020-01-05] MEDS: BUDESONIDE 0.5 MG/2 ML NEB INH SCH ×2 (07:09→19:52)
[2020-01-05] MEDS ORDERED: SODIUM CHLORIDE 0.9% 1,000 ML IV SCH (08:00)
[2020-01-05] MEDS: SODIUM CHLORIDE FLUSH 0.9% 10 ML SYRINGE IVP SCH ×2 (08:07→15:51)
[2020-01-05 08:40] LABS: ABSOLUTE RETICS # AUTO 0.056 10^6/uL (0.020-0.110); RED BLOOD COUNT 3.19 10^6/uL (4.20-5.40)
[2020-01-05] MEDS: ACETAMINOPHEN 325 MG TABLET PO PRN ×2 (08:40→19:25)
[2020-01-05] MEDS: FAMOTIDINE 20 MG TABLET PO SCH (08:41)
[2020-01-05] MEDS: DOCUSATE SODIUM 250 MG CAPSULE PO SCH (08:41)
[2020-01-05] MEDS: PREGABALIN 25 MG CAPSULE PO SCH ×2 (08:41→20:14)
[2020-01-05] MEDS: APIXABAN 5 MG TABLET PO SCH ×3 (08:41→20:13)
[2020-01-05] MEDS: OXYBUTYNIN 5MG TABLET PO SCH ×2 (08:42→20:13)
[2020-01-05] MEDS: METOPROLOL SUCCINATE 25 MG TABLET PO SCH (08:42)
[2020-01-05] MEDS: polyethylene glycoL 3350 17 GM PACKET PO SCH (08:51)
[2020-01-05] MEDS: MEROPENEM 1 GM in SODIUM CHLORIDE 0.9% MINIBAG 100 ML IV SCH ×2 (08:51→20:14)
[2020-01-05 09:22] LABS: % IRON SATURATION 7 % (20-50); IRON 18 ug/dL (28-170); TOTAL IRON BINDING CAPACITY 263 ug/dL (250-450); TRANSFERRIN 188 mg/dL (192-382)
[2020-01-05] MEDS: FERROUS SULFATE 325 MG TABLET PO SCH ×2 (12:05→16:52)
--- NOTE | 2020-01-05 13:15 | PROVIDER PROGRESS NOTE ---
Subjective - Prog Note Date Prog Note Date: 01/05/20 - Subjective Pt reports feeling: Improved Subjective: Patient report she feel better, patient is a alert, orientate two including herself, location, not the time. Patient was found to have ESBL urinary tract infection at this morning, patient is required to have 2 weeks intravenous of antibiotics like imipenem or entrapenem. coating line worker report [facility] can not do intravenous antibiotics treatment for patient, patient is required now for the jail in which she can have IV of antibiotics for this discharge. nursing home social worker report she contact patient's son, and [employer] but she did not get response back yet. Current Medications - Current Medications Current Medications: Active Medications Acetaminophen (Tylenol) 650 mg PO Q4HR PRN PRN Reason: Pain 1 to 4 Last Admin: 01/05/20 08:40 Dose: 650 mg Albuterol () 2.5 mg INH RTQ4H PRN PRN Reason: Wheezing Albuterol/Ipratropium (Duoneb) 3 ml INH RTQID PRN PRN Reason: Shortness of Air/Wheezing Last Admin: 01/03/20 20:33 Dose: 3 ml Apixaban (Eliquis) 5 mg PO BID [facility] Last Admin: 01/05/20 08:42 Dose: 5 mg Aspirin (St Rajendra Aspirin) 81 mg PO MoWeFr@0900 [facility] Budesonide (Pulmicort) 0.5 mg INH RTBID [facility] Last Admin: 01/05/20 07:09 Dose: 0.5 mg Docusate Sodium (Colace 250mg Capsule) 250 - 500 mg PO DAILY [facility] Last Admin: 01/05/20 08:41 Dose: 250 mg Famotidine (Pepcid) 20 mg PO DAILY [facility] Last Admin: 01/05/20 08:41 Dose: 20 mg Ferrous Sulfate (Feosol) 325 mg PO BIDWM [facility] Last Admin: 01/05/20 12:05 Dose: 325 mg Formoterol Fumarate (Perforomist) 20 mcg INH RTBID [facility] Last Admin: 01/05/20 07:09 Dose: 20 mcg Haloperidol (Haldol) 2 mg PO Q8H PRN PRN Reason: Agitation Sodium Chloride (Normal Saline 0.9%) 1,000 mls @ 83.333 mls/hr IV .Q12H [facility] Stop: 01/06/20 07:59 Last Infusion: 01/05/20 09:25 Dose: 83.333 mls/hr Meropenem 1 gm/ Sodium (Chloride) 100 mls @ 200 mls/hr IV BID [facility] Last Infusion: 01/05/20 09:25 Dose: Infused Levothyroxine Sodium (Synthroid) 25 mcg PO QDAC [facility] Last Admin: 01/05/20 05:59 Dose: 25 mcg Lorazepam (Ativan) 0.5 mg PO Q4H PRN PRN Reason: Anxiety Last Admin: 01/03/20 22:22 Dose: 0.5 mg Metoprolol Succinate (Toprol Xl) 25 mg PO DAILY [facility] Last Admin: 01/05/20 08:42 Dose: 25 mg Ondansetron HCl (Zofran Inj) 4 mg IVP Q6HR PRN PRN Reason: Nausea / Vomiting Oxybutynin Chloride (Ditropan) 5 mg PO BID [facility] Last Admin: 01/05/20 08:42 Dose: 5 mg Oxycodone HCl (Roxicodone) 5 mg PO Q4HR PRN PRN Reason: PAIN Last Admin: 01/04/20 19:15 Dose: 5 mg Polyethylene Glycol (Miralax) 17 gm PO DAILY [facility] Last Admin: 01/05/20 08:51 Dose: 17 gm Pregabalin (Lyrica) 75 mg PO BID [facility] Last Admin: 01/05/20 08:41 Dose: 75 mg Risperidone (Risperdal) 0.25 mg PO QPM [facility] Last Admin: 01/04/20 19:59 Dose: 0.25 mg Sodium Chloride (Normal Saline Flush 0.9%) 10 ml IVP PRN PRN PRN Reason: NEEDED PER PROVIDER ORDERS Sodium Chloride (Normal Saline Flush 0.9%) 10 ml IVP 0100,0900,1700 [facility] Last Admin: 01/05/20 08:07 Dose: 10 ml Venlafaxine HCl (Effexor Er) 225 mg PO DAILY [facility] Acetaminophen [Tylenol] 650 mg PO Q6H PRN 05/29/19 Apixaban [Eliquis] 5 mg PO BID 05/29/19 Budesonide/Formoterol Fumarate [Symbicort 160-4.5 Mcg Inhaler] 2 puffs INH BID 05/29/19 Famotidine 20 mg PO BID 05/29/19 Levothyroxine [Synthroid] 25 mcg PO DAILY 05/29/19 Metoprolol Succinate 25 mg PO DAILY 05/29/19 Oxybutynin Chloride [Ditropan Xl] 10 mg PO DAILY 05/29/19 Pregabalin 75 mg PO BID 05/29/19 Sennosides [Senna Laxative] 8.6 mg PO BID PRN 05/29/19 Simvastatin 40 mg PO QPM 05/29/19 Umeclidinium [place] [Incruse Ellipta] 1 puffs INH DAILY 05/29/19 Venlafaxine HCl [Venlafaxine HCl ER] 3 tab PO DAILY 05/29/19 Aspirin 81 mg PO MOWEFR 09/10/19 LORazepam [Ativan] 0.5 mg PO Q4H PRN 09/10/19 Albuterol Sulf [Ventolin Hfa Inhaler] 1 - 2 puffs INH Q4H PRN 10/24/19 risperiDONE [RisperDAL] 0.25 mg PO QPM 10/24/19 Objective - Vital Signs/Intake & Output Vital Signs: Vital Signs x48h Pulse Pulse Pulse Resp BP Pulse Ox Pulse Ox 01/05/20 09:45 87 98 01/05/20 08:33 81 18 122/42 L 94 01/05/20 07:10 86 16 Intake & Output: Intake & Output 01/02/20 01/03/20 01/04/20 01/05/20 23:59 23:59 23:59 23:59 Intake Total 1950 2586 906.666 Output Total 250 2100 975 Balance 1700 486 -68.334 - Objective General Appearance: positive: No acute distress, Alert. negative: Lethargic Eyes Bilateral: positive: Normal inspection, PERRL, No lid inflammation ENT: positive: ENT inspection nml, Pharynx nml, No signs of dehydration. negative: Purulent nasal drainage Neck: positive: Nml inspection, Thyroid nml, Trachea midline. negative: Thyromegaly, Stiff neck, Tracheal deviation Respiratory: positive: Chest non-tender, No respiratory distress. negative: Wheezes, Rales, Rhonchi Cardiovascular: positive: Regular rate & rhythm, No murmur. negative: Irregularly irregular, Tachycardia, Bradycardia, Systolic murmur, Diastolic murmur Peripheral Pulses: 2+ Radial (R), 2+ Radial (L) Abdomen: positive: Non-tender, No organomegaly, Nml bowel sounds, No distention. negative: Tenderness, Guarding, Rebound Back: positive: Nml inspection. negative: CVA tenderness (R), CVA tenderness (L) Skin: positive: Color nml, No rash, Warm, Dry. negative: Cyanosis, Diaphoresis, Pallor Extremities: positive: Non-tender, Nml appearance. negative: Calf tenderness, Criselda's sign/cords Neurologic/Psychiatric: positive: Motor nml, Sensation nml. negative: Weakness, Sensory loss, Facial droop, Slurred/abnml speech, Depressed mood/affect - Lab Results Fish Bones: 01/05/20 05:02 01/05/20 05:02 Other Labs: Lab Results x24hrs 01/05/20 01/05/20 01/05/20 Range/Units 05:02 05:02 05:02 WBC (4.8-10.8) x10^3/uL RBC (4.20-5.40) 10^6/uL Hgb (12.0-16.0) g/dL Hct (37.0-47.0) % MCV (81.0-99.0) fL MCH (27.0-31.0) pg MCHC (32.0-36.0) g/dL RDW (12.0-15.0) % Plt Count (130-450) 10^3/uL MPV (7.9-10.8) fL Reticulocyte % (Auto) (0.5-2.3) % Neut # (Auto) (1.5-6.6) 10^3/uL Lymph # (Auto) (1.5-3.5) 10^3/uL [place] # (Auto) (0.0-1.0) 10^3/uL Eos # (Auto) (0.0-0.7) 10^3/uL Baso # (Auto) (0.0-0.1) 10^3/uL Absolute Nucleated RBC x10^3/uL Nucleated RBC % /100WBC Absolute Retic (0.020-0.110) 10^6/uL Sodium (135-145) mmol/L Potassium (3.5-5.0) mmol/L Chloride (101-111) mmol/L Carbon Dioxide (21-32) mmol/L Anion Gap (6-13) BUN (6-20) mg/dL Creatinine (0.4-1.0) mg/dL Estimated GFR (MDRD) (>89) Glucose (70-100) mg/dL Calcium (8.5-10.3) mg/dL Magnesium (1.7-2.8) mg/dL Iron 18 L (28-170) ug/dL TIBC 263 (250-450) ug/dL % Saturation 7 L (20-50) % Transferrin 188 L (192-382) mg/dL Ferritin 19.0 (11.0-306.8) ng/mL Lactate Dehydrogenase 77 L (91-225) IU/L Vitamin B12 261 (180-914) pg/mL 01/05/20 01/05/20 01/05/20 Range/Units 05:02 05:02 05:02 WBC 8.9 (4.8-10.8) x10^3/uL RBC 3.19 L 3.25 L (4.20-5.40) 10^6/uL Hgb 8.9 L (12.0-16.0) g/dL Hct 29.4 L (37.0-47.0) % MCV 90.5 (81.0-99.0) fL MCH 27.4 (27.0-31.0) pg MCHC 30.3 L (32.0-36.0) g/dL RDW 16.8 H (12.0-15.0) % Plt Count 289 (130-450) 10^3/uL MPV 9.2 (7.9-10.8) fL Reticulocyte % (Auto) 1.74 (0.5-2.3) % Neut # (Auto) 5.8 (1.5-6.6) 10^3/uL Lymph # (Auto) 1.8 (1.5-3.5) 10^3/uL [place] # (Auto) 0.9 (0.0-1.0) 10^3/uL Eos # (Auto) 0.4 (0.0-0.7) 10^3/uL Baso # (Auto) 0.1 (0.0-0.1) 10^3/uL Absolute Nucleated RBC 0.00 x10^3/uL Nucleated RBC % 0.0 /100WBC Absolute Retic 0.056 (0.020-0.110) 10^6/uL Sodium 140 (135-145) mmol/L Potassium 3.9 (3.5-5.0) mmol/L Chloride 107 (101-111) mmol/L Carbon Dioxide 26 (21-32) mmol/L Anion Gap 7.0 (6-13) BUN 17 (6-20) mg/dL Creatinine 1.4 H (0.4-1.0) mg/dL Estimated GFR (MDRD) 36 L (>89) Glucose 113 H (70-100) mg/dL Calcium 9.0 (8.5-10.3) mg/dL Magnesium 2.4 (1.7-2.8) mg/dL Iron (28-170) ug/dL TIBC (250-450) ug/dL % Saturation (20-50) % Transferrin (192-382) mg/dL Ferritin (11.0-306.8) ng/mL Lactate Dehydrogenase (91-225) IU/L Vitamin B12 (180-914) pg/mL ABX Reporting Has patient been on IV antibiotics over the past 48 hours?: Yes Assessment/Plan - Problem List (1) UTI (urinary tract infection) Impression: Patient has recurrent UTIs, so using previous urine culture and sensitivity study, we will use Rocephin treated the patient, then follow-up urine culture. 01/03: White cell count has gone from 14.8-9.9. Culture is E. coli. Also there is some gram-positive. She is afebrile. Blood pressure a little low at 108/35. change to po abx. and assess for recurrence of fever or elevated wbc. 01/04 UA sensitivity study showed patient had ESBL infection,Patient is required to have 2 weeks of intravenous antibiotics, patient is a started to have Meropenem antibiotics treated in today, patient is counseled with social work, patient Welcome home can not do intravenous antibiotics for patient, patient is required to look for jail in which pt can have intravenous antibiotics. (2)fall 01/04 Patient Head fall in [facility]. imaging studies review without acute fracture.Continue fall precaution, consult with PT/OT, pain control (3) AMS (altered mental status) Conclusion/Plan: CT of the head is unremarkable, patient has baseline advanced dementia, and the patient has an acute UTI now, so AMS likely combination of the patient history of advanced dimension plus an acute urinary tract infection. This morning she is lethargic, sitting up in bed, and nursing reports that she received an opiate and benzodiazepine. She gets those on a regular basis at her facility. Lorazepam is every 4 hours as needed, venlafaxine, Haldol, respiradal are also noted. She is also on pregabalin twice daily. Watching her today on her usual medications, indicates that she may be getting too much medication in the outpatient setting and may be the reason that contributed to her fall. Physical therapy has seen her and she is very sedated. 01/04 Today morning patient is alert, orientated to herself and the location but not to time, today patient is a cooperative with nursing, we will continue nursing support, continue neuro Check (4) Atrial fibrillation Conclusion/Plan: Patient has history of atrial fibrillation, now patient's heart rate is controlled, will continue patient home medication metoprolol for rate control, and continue Eliquis for anticoagulation (5) HTN (hypertension) Conclusion/Plan: Patient blood pressure is controlled now, will continue home blood pressure medicine metoprolol, continue vital signs monitor. Pulse is in the 70s and systolic 108. Will recheck and see if fluid bolus needed. (6) COPD with asthma controlled. Conclusion/Plan: Patient has history of COPD and asthma, but the patient has no acute COPD exacerbation or respiratory acute distress, continue PRN home medication albuterol and duoneb (7) Advanced dementia Conclusion/Plan: Patient has history advanced dementia, with behavioral disturbances, we will continue patient home medication, will continue support No change in status here. (8) Hypothyroidism Conclusion/Plan: We will check TSH, continue home medication. Ordered lab draw for today. (9) GORDON (acute kidney injury) Conclusion/Plan: 01/04 creatinine today is 1.4, stable, continue gently intravenous IV fluid for hydration Patient's creatinine is 1.3, patient has baseline creatinine is 1.0, is likely from patient dehydration, will continue hydration for patient, continue lab test monitor. (2) AMS (altered mental status) Qualifiers: Altered mental status type: stupor Qualified Code(s): R40.1 - Stupor
[2020-01-05] MEDS: SODIUM CHLORIDE 0.9% 1,000 ML IV SCH (13:35)
[2020-01-05] MEDS ORDERED: SODIUM CHLORIDE 0.9% 1,000 ML IV ONE (13:37)
[2020-01-05] MEDS: oxyCODONE 5 MG TABLET PO PRN (20:13)
[2020-01-05] MEDS: risperiDONE 0.25 MG TABLET PO SCH (20:14)
[2020-01-05] MEDS ORDERED: PREGABALIN 25 MG CAPSULE PO SCH (21:00)
[2020-01-06] MEDS: ACETAMINOPHEN 325 MG TABLET PO PRN (00:04)
[2020-01-06] MEDS: oxyCODONE 5 MG TABLET PO PRN ×4 (00:04→23:52)
[2020-01-06] MEDS: SODIUM CHLORIDE FLUSH 0.9% 10 ML SYRINGE IVP SCH ×3 (01:13→16:11)
[2020-01-06] MEDS: SODIUM CHLORIDE 0.9% 1,000 ML IV SCH (03:53)
[2020-01-06 05:08] LABS: BASOPHILS # (AUTO) 0.1 10^3/uL (0.0-0.1); BASOPHILS % (AUTO) 0.6 %; EOSINOPHILS # (AUTO) 0.4 10^3/uL (0.0-0.7); EOSINOPHILS % (AUTO) 4.3 %; HGB - HEMOGLOBIN 8.8 g/dL (12.0-16.0); LYMPHOCYTES # (AUTO) 1.8 10^3/uL (1.5-3.5); LYMPHOCYTES % (AUTO) 20.3 %; MEAN CORPUSCULAR HEMOGLOBIN 27.8 pg (27.0-31.0); MEAN CORPUSCULAR HGB CONC 31.1 g/dL (32.0-36.0); MEAN CORPUSCULAR VOLUME 89.3 fL (81.0-99.0); MEAN PLATELET VOLUME 9.3 fL (7.9-10.8); MONOCYTES # (AUTO) 0.8 10^3/uL (0.0-1.0); MONOCYTES % (AUTO) 9.5 %; NEUTROPHILS # (AUTO) 5.7 10^3/uL (1.5-6.6); NEUTROPHILS % (AUTO) 64.8 %; PLT - PLATELET COUNT 290 10^3/uL (130-450); RED BLOOD COUNT 3.17 10^6/uL (4.20-5.40); RED CELL DISTRIBUTION WIDTH 16.6 % (12.0-15.0); WHITE BLOOD COUNT 8.8 x10^3/uL (4.8-10.8)
[2020-01-06 05:17] LABS: CALCIUM 9.1 mg/dL (8.5-10.3)
[2020-01-06] MEDS: LEVOTHYROXINE 25 MCG TABLET PO SCH (06:05)
[2020-01-06] MEDS: FORMOTEROL FUMARATE NEB 20 MCG/2 ML INH SCH ×2 (07:29→21:43)
[2020-01-06] MEDS: BUDESONIDE 0.5 MG/2 ML NEB INH SCH ×2 (07:29→21:43)
[2020-01-06] MEDS: FAMOTIDINE 20 MG TABLET PO SCH (08:48)
[2020-01-06] MEDS: VENLAFAXINE ER 75 MG CAPSULE PO SCH (08:48)
[2020-01-06] MEDS: PREGABALIN 25 MG CAPSULE PO SCH ×2 (08:48→21:19)
[2020-01-06] MEDS: MEROPENEM 1 GM in SODIUM CHLORIDE 0.9% MINIBAG 100 ML IV SCH ×2 (08:49→21:20)
[2020-01-06] MEDS: polyethylene glycoL 3350 17 GM PACKET PO SCH (08:49)
[2020-01-06] MEDS: APIXABAN 5 MG TABLET PO SCH ×2 (08:50→21:20)
[2020-01-06] MEDS: FERROUS SULFATE 325 MG TABLET PO SCH ×2 (08:50→16:11)
[2020-01-06] MEDS: DOCUSATE SODIUM 250 MG CAPSULE PO SCH (08:54)
[2020-01-06] MEDS: OXYBUTYNIN 5MG TABLET PO SCH ×2 (08:55→21:19)
[2020-01-06] MEDS ORDERED: ASPIRIN CHEW 81 MG TABLET PO SCH (09:00)
[2020-01-06] MEDS ORDERED: METOPROLOL SUCCINATE 25 MG TABLET PO SCH (09:55)
[2020-01-06 13:24] LABS: INR 1.6 (0.8-1.2); PT - PROTHROMBIN TIME 18.2 secs (9.9-12.6)
--- NOTE | 2020-01-06 17:33 | PROVIDER PROGRESS NOTE ---
Subjective - Prog Note Date Prog Note Date: 01/06/20 Prog Note Time: 17:28 - Subjective Pt reports feeling: Improved Subjective: Sitting up in bed. Very alert. Cheerful. Knows that she was in the hospital because she had a urinary tract infection. Cannot tell me who she is. Does not remember meeting me before even though I am seeing her twice. Does not know the date. Eating breakfast without any difficulty. At welcome home manner she is wheelchair-bound. Current Medications - Current Medications Current Medications: Active Medications Acetaminophen (Tylenol) 650 mg PO Q4HR PRN PRN Reason: Pain 1 to 4 Last Admin: 01/06/20 00:04 Dose: 650 mg Albuterol () 2.5 mg INH RTQ4H PRN PRN Reason: Wheezing Last Admin: 01/06/20 07:29 Dose: 2.5 mg Albuterol/Ipratropium (Duoneb) 3 ml INH RTQID PRN PRN Reason: Shortness of Air/Wheezing Last Admin: 01/03/20 20:33 Dose: 3 ml Apixaban (Eliquis) 5 mg PO BID [facility] Last Admin: 01/06/20 08:50 Dose: 5 mg Aspirin ([facility] Rajendra Aspirin) 81 mg PO MoWeFr@0900 [facility] Last Admin: 01/06/20 08:49 Dose: 81 mg Budesonide (Pulmicort) 0.5 mg INH RTBID [facility] Last Admin: 01/06/20 07:29 Dose: 0.5 mg Docusate Sodium (Colace 250mg Capsule) 250 - 500 mg PO DAILY [facility] Last Admin: 01/06/20 08:54 Dose: 250 mg Famotidine (Pepcid) 20 mg PO DAILY [facility] Last Admin: 01/06/20 08:48 Dose: 20 mg Ferrous Sulfate (Feosol) 325 mg PO BIDWM [facility] Last Admin: 01/06/20 16:11 Dose: 325 mg Formoterol Fumarate (Perforomist) 20 mcg INH RTBID [facility] Last Admin: 01/06/20 07:29 Dose: 20 mcg Haloperidol (Haldol) 2 mg PO Q8H PRN PRN Reason: Agitation Meropenem 1 gm/ Sodium (Chloride) 100 mls @ 200 mls/hr IV BID [facility] Last Infusion: 01/06/20 09:48 Dose: Infused Levothyroxine Sodium (Synthroid) 25 mcg PO QDAC [facility] Last Admin: 01/06/20 06:05 Dose: 25 mcg Lorazepam (Ativan) 0.5 mg PO Q4H PRN PRN Reason: Anxiety Last Admin: 01/03/20 22:22 Dose: 0.5 mg Metoprolol Succinate (Toprol Xl) 25 mg PO DAILY [facility] Ondansetron HCl (Zofran Inj) 4 mg IVP Q6HR PRN PRN Reason: Nausea / Vomiting Oxybutynin Chloride (Ditropan) 5 mg PO BID [facility] Last Admin: 01/06/20 08:55 Dose: 5 mg Oxycodone HCl (Roxicodone) 5 mg PO Q4HR PRN PRN Reason: PAIN Last Admin: 01/06/20 13:46 Dose: 5 mg Polyethylene Glycol (Miralax) 17 gm PO DAILY [facility] Last Admin: 01/06/20 08:49 Dose: 17 gm Pregabalin (Lyrica) 50 mg PO QPM [facility] Last Admin: 01/05/20 20:14 Dose: 50 mg Pregabalin (Lyrica) 25 mg PO DAILY [facility] Last Admin: 01/06/20 08:48 Dose: 25 mg Risperidone (Risperdal) 0.25 mg PO QPM [facility] Last Admin: 01/05/20 20:14 Dose: 0.25 mg Sodium Chloride (Normal Saline Flush 0.9%) 10 ml IVP PRN PRN PRN Reason: NEEDED PER PROVIDER ORDERS Sodium Chloride (Normal Saline Flush 0.9%) 10 ml IVP 0100,0900,1700 [facility] Last Admin: 01/06/20 16:11 Dose: Not Given Venlafaxine HCl (Effexor Er) 225 mg PO DAILY [facility] Last Admin: 01/06/20 08:48 Dose: 225 mg Acetaminophen [Tylenol] 650 mg PO Q6H PRN 05/29/19 Apixaban [Eliquis] 5 mg PO BID 05/29/19 Budesonide/Formoterol Fumarate [Symbicort 160-4.5 Mcg Inhaler] 2 puffs INH BID 05/29/19 Famotidine 20 mg PO BID 05/29/19 Levothyroxine [Synthroid] 25 mcg PO DAILY 05/29/19 Metoprolol Succinate 25 mg PO DAILY 05/29/19 Oxybutynin Chloride [Ditropan Xl] 10 mg PO DAILY 05/29/19 Pregabalin 75 mg PO BID 05/29/19 Sennosides [Senna Laxative] 8.6 mg PO BID PRN 05/29/19 Simvastatin 40 mg PO QPM 05/29/19 Umeclidinium Moose [Incruse Ellipta] 1 puffs INH DAILY 05/29/19 Venlafaxine HCl [Venlafaxine HCl ER] 3 tab PO DAILY 05/29/19 Aspirin 81 mg PO MOWEFR 09/10/19 LORazepam [Ativan] 0.5 mg PO Q4H PRN 09/10/19 Albuterol Sulf [Ventolin Hfa Inhaler] 1 - 2 puffs INH Q4H PRN 10/24/19 risperiDONE [RisperDAL] 0.25 mg PO QPM 10/24/19 Objective - Vital Signs/Intake & Output Reviewed Vital Signs: Yes Vital Signs: Vital Signs x48h Temp Pulse Pulse Pulse Pulse Resp BP 01/06/20 16:00 36.6 C 76 20 118/38 L 01/06/20 10:15 87 76 74 BP BP Pulse Ox Pulse Ox Pulse Ox 01/06/20 16:00 93 01/06/20 10:15 129/48 L 117/38 L 100 97 Intake & Output: Intake & Output 01/03/20 01/04/20 01/05/20 01/06/20 23:59 23:59 23:59 23:59 Intake Total 1950 2586 3406.750 1631.25 Output Total 250 2100 3450 1400 Balance 1700 486 -43.250 231.25 - Objective General Appearance: positive: No acute distress, Alert, Other (Elderly white female she is 5 foot 3 inches tall and weighs 59.5 kg.Gaunt appearance on feces.) Eyes Bilateral: positive: PERRL ENT: positive: No signs of dehydration Neck: positive: No JVD. negative: Stiff neck Respiratory: positive: Chest non-tender, No respiratory distress. negative: Wheezes, Rales, Rhonchi Cardiovascular: positive: Regular rate & rhythm. negative: Gallop/S4 Abdomen: positive: Non-tender, No organomegaly, Nml bowel sounds, No distention Skin: positive: Warm, Dry Extremities: positive: No pedal edema (Although arms look large and swollen they are not edematous. They are incongruent with her petite frame.) Neurologic/Psychiatric: positive: CN's nml (2-12), Disoriented to time. negative: Motor nml (Complaining of tenderness of upper and lower extremities to touch. Work with physical therapy. Able to roll to her right side with moderate assist, needed help to sit up. Able to scoot to the edge of the bed with minimum assist x2, and was able to use her hands to push against the mattress. She was able to stand with min assist x2 and required cues to put her hands on top of the walker fish rod maker. Overall she has decreased independence, with all transfers and functional mobility. Able to stand and step with a walker but requires full guidance and cues. She would benefit from continued physical therapy to work on her mobility. They recommend [facility] physical [facility] while she is getting her antibiotic therapy.) - Lab Results Fish Bones: 01/06/20 04:50 01/06/20 04:50 Other Labs: Lab Results x24hrs 01/06/20 01/06/20 01/06/20 Range/Units 13:04 04:50 04:50 WBC 8.8 (4.8-10.8) x10^3/uL RBC 3.17 L (4.20-5.40) 10^6/uL Hgb 8.8 L (12.0-16.0) g/dL Hct 28.3 L (37.0-47.0) % MCV 89.3 (81.0-99.0) fL MCH 27.8 (27.0-31.0) pg MCHC 31.1 L (32.0-36.0) g/dL RDW 16.6 H (12.0-15.0) % Plt Count 290 (130-450) 10^3/uL MPV 9.3 (7.9-10.8) fL Neut # (Auto) 5.7 (1.5-6.6) 10^3/uL Lymph # (Auto) 1.8 (1.5-3.5) 10^3/uL [place] # (Auto) 0.8 (0.0-1.0) 10^3/uL Eos # (Auto) 0.4 (0.0-0.7) 10^3/uL Baso # (Auto) 0.1 (0.0-0.1) 10^3/uL Absolute Nucleated RBC 0.00 x10^3/uL Nucleated RBC % 0.0 /100WBC PT 18.2 H (9.9-12.6) secs INR 1.6 H (0.8-1.2) Sodium 141 (135-145) mmol/L Potassium 4.0 (3.5-5.0) mmol/L Chloride 108 (101-111) mmol/L Carbon Dioxide 26 (21-32) mmol/L Anion Gap 7.0 (6-13) BUN 14 (6-20) mg/dL Creatinine 1.0 (0.4-1.0) mg/dL Estimated GFR (MDRD) 53 L (>89) Glucose 106 H (70-100) mg/dL Calcium 9.1 (8.5-10.3) mg/dL ABX Reporting Has patient been on IV antibiotics over the past 48 hours?: Yes Assessment/Plan - Problem List (1) UTI (urinary tract infection) Impression: Patient has recurrent UTIs, so using previous urine culture and sensitivity study, we will use Rocephin treated the patient, then follow-up urine culture. 01/03: White cell count has gone from 14.8-9.9. Culture is E. coli. Also there is some gram-positive. She is afebrile. Blood pressure a little low at 108/35. change to po abx. and assess for recurrence of fever or elevated wbc.Changed to Vantin p.o. 01/04: Final sensitivities to the E. coli came back and she has ESBL. Because of multiple, multiple allergies she was started on meropenem. 01/05: Meropenem continues. We thought about putting in a PICC line for long- term antibiotics for the next 12 days. However she has a port. We will use the port. Ask for placement to [facility] to complete antibiotic therapy for then a return to her assisted living facility, [facility]. Qualifiers: Urinary tract infection type: acute cystitis Hematuria presence: with hematuria Qualified Code(s): N30.01 - Acute cystitis with hematuria (2) AMS (altered mental status) resolved. Conclusion/Plan: CT of the head is unremarkable, patient has baseline advanced dementia, and the patient has an acute UTI now, so AMS likely combination of the patient history of advanced dimension plus an acute urinary tract infection. 01/03: morning she is lethargic, sitting up in bed, and nursing reports that she received an opiate and benzodiazepine. She gets those on a regular basis at her facility. Lorazepam is every 4 hours as needed, venlafaxine, Haldol, respiradal are also noted. She is also on pregabalin twice daily. Watching her today on her usual medications, indicates that she may be getting too much medication in the outpatient setting and may be the reason that contributed to her fall. Physical therapy has seen her and she is very sedated. I will reduce doseage on sedating meds. 01/04: She really did not get very many medications that were new and sedating for her. Is much more appropriate and that she is oriented to person and place just not time. 01/05: Very appropriate this morning. Chatting. Asking appropriate questions. Still does not know what day it is. Able to tell me that legs always hurt. Really likes her breakfast. Does not like eggs and is delighted with the oatmeal they have provider.She will get physical therapy at the [facility]. Hopefully this will improve her independence at [facility] Qualifiers: Altered mental status type: stupor Qualified Code(s): R40.1 - Stupor (3) Atrial fibrillation Conclusion/Plan: Patient has history of atrial fibrillation, now patient's heart rate is controlled, will continue patient home medication metoprolol for rate control, and continue Eliquis for anticoagulation (4) HTN (hypertension) Conclusion/Plan: Patient blood pressure is controlled now, will continue home blood pressure medicine metoprolol, continue vital signs monitor. Without any specific treatmen t blood pressure is been 116-131 since yesterday. No change in medication needed. (5) COPD with asthma controlled. Conclusion/Plan: Patient has history of COPD and asthma, but the patient has no acute COPD exacerbation or respiratory acute distress, continue PRN home medication albuterol and duoneb (6) Advanced dementia Conclusion/Plan: Patient has history advanced dementia, with behavioral disturbances, we will con tinue patient home medication, will continue support No change in status here. (7) Hypothyroidism Conclusion/Plan: TSH 3.41. continue home medication. No change in dose. (8) GORDON (acute kidney injury) Conclusion/Plan: Patient's creatinine is 1.3, patient has baseline creatinine is 1.0, is likely from patient dehydration, will continue hydration for patient, continue lab test monitor. Today's creatinine is 1. GFR is 53. (9) Iron deficiency anemia Laboratory Tests 01/05/20 01/05/20 01/05/20 05:02 05:02 05:02 Iron 18 L TIBC 263 % Saturation 7 L Transferrin 188 L Ferritin 19.0 Lactate Dehydrogenase 77 L Vitamin B12 261 She is on Eliquis. But no reports of GI blood loss. At 79, with her dementia, pros and cons of a GI work-up would be discussed in the outpatient setting. At this time start iron and vitamin C.
[2020-01-06] MEDS: risperiDONE 0.25 MG TABLET PO SCH (21:19)
[2020-01-06] MEDS: IPRATROPIUM/ALBUTEROL 3 ML NEB INH PRN (21:42)
[2020-01-07 05:29] LABS: BASOPHILS # (AUTO) 0.1 10^3/uL (0.0-0.1); BASOPHILS % (AUTO) 0.6 %; EOSINOPHILS # (AUTO) 0.4 10^3/uL (0.0-0.7); EOSINOPHILS % (AUTO) 3.8 %; HGB - HEMOGLOBIN 8.9 g/dL (12.0-16.0); LYMPHOCYTES # (AUTO) 1.5 10^3/uL (1.5-3.5); LYMPHOCYTES % (AUTO) 15.4 %; MEAN CORPUSCULAR HGB CONC 31.1 g/dL (32.0-36.0); MEAN CORPUSCULAR VOLUME 89.9 fL (81.0-99.0); MEAN PLATELET VOLUME 9.1 fL (7.9-10.8); MONOCYTES # (AUTO) 0.9 10^3/uL (0.0-1.0); MONOCYTES % (AUTO) 8.9 %; NEUTROPHILS % (AUTO) 70.6 %; PLT - PLATELET COUNT 311 10^3/uL (130-450); RED BLOOD COUNT 3.18 10^6/uL (4.20-5.40); RED CELL DISTRIBUTION WIDTH 16.9 % (12.0-15.0); WHITE BLOOD COUNT 9.9 x10^3/uL (4.8-10.8)
[2020-01-07 05:34] LABS: CALCIUM 9.2 mg/dL (8.5-10.3); CREATININE 1.1 mg/dL (0.4-1.0)
[2020-01-07] MEDS: SODIUM CHLORIDE FLUSH 0.9% 10 ML SYRINGE IVP SCH ×2 (06:01→08:57)
[2020-01-07] MEDS: LEVOTHYROXINE 25 MCG TABLET PO SCH (06:01)
[2020-01-07] MEDS: IPRATROPIUM/ALBUTEROL 3 ML NEB INH PRN (07:55)
[2020-01-07] MEDS: BUDESONIDE 0.5 MG/2 ML NEB INH SCH (07:55)
[2020-01-07] MEDS: FORMOTEROL FUMARATE NEB 20 MCG/2 ML INH SCH (07:55)
--- NOTE | 2020-01-07 08:22 | Discharge Plan ---
"Discharge Plan for SNF / [facility] - Discharge Plan And Transition Orders Problem Reviewed?: Yes Disposition: 03 SNF DC/Xfer Condition: Stable Allergies and Adverse Reactions: Allergies Allergy/AdvReac Type Severity Reaction Status Date / Time adhesive Allergy Unknown Verified 01/03/20 05:32 alendronate sodium Allergy Unknown Verified 01/03/20 05:32 cephalexin Allergy Unknown Verified 01/03/20 05:32 chlorhexidine Allergy Unknown Verified 01/03/20 05:32 ciprofloxacin [From Cipro] Allergy Unknown Verified 01/03/20 05:32 erythromycin base Allergy Unknown Verified 01/03/20 05:32 ether Allergy Unknown Verified 01/03/20 05:32 fentanyl Allergy Unknown Verified 01/03/20 05:32 hydromorphone Allergy Unknown Verified 01/03/20 05:32 Iodinated Contrast Media Allergy Unknown Verified 01/03/20 05:32 methadone Allergy Unknown Verified 01/03/20 05:32 nitrofurantoin Allergy Unknown Verified 01/03/20 05:32 Penicillins Allergy Unknown Verified 01/03/20 05:32 strawberry Allergy Unknown Verified 01/03/20 05:32 Sulfa (Sulfonamide Allergy Unknown Verified 01/03/20 05:32 Antibiotics) zolpidem Allergy Unknown Verified 01/03/20 05:32 streptomycin AdvReac Unknown Verified 01/03/20 05:32 Health Concerns: ESBL UTI Plan of Treatment: pt still has 11 days remain of IV antibiotic for ESBL UTI infection, advise continue IV antibiotics Meropenem in nurse home. Care Goals: control of infection Assessment: pt is alert and oriented plus two, and cooperative today, she state she understood the care plan, continue nurse home care for her. - SNF / [facility] Transition Orders Admit to (Facility): [facility] Under the care of (Name): Odilon Benson Discharge Diagnosis: ESBL UTI, Afib, HTN, COPD with asthma controlled, advanced dementia, hypothyroidism, CKD, iron deficiency anemia, Medicare Certification Statement: I certify [facility] care is medically necessary on a continuing basis for any of the conditions for which she/he is receiving care during hospitalization. Notify PCP of admission and forward orders to primary provider for signature. Weight on admission and: Daily Call PCP immediately if weight increases by: 2 kg Other Notification Orders: Call PCP immediately if patient develops dyspnea, chest pain/tightness or edema. House Bowel Program: Yes Additional Bowel Program Orders: If no BM after 2 days, nurse may give M.O.M. 30ml PO PRN and/or ducolax Supp 1 ME and/or CODI 250mg P.O., and/or senna 1-2 tabs PO. On day 3 nurse may give repeat above order until residents constipation is resolved. Annual Influenza Vaccine (between Apr 07 and November 04): Yes Two-step PPD per [facility] [id number] or approved exception documents: Yes Treatments & Other Orders: pt still has 11 days remain of IV antibiotic for ESBL UTI infection, advise continue IV antibiotics Meropenem in nurse home. Medication Orders: PLEASE REFER TO THE DISCHARGE MEDICATION LIST. Insulin Orders?: No - Medications New Prescriptions: Ferrous Sulfate 325 mg PO DAILY #15 tablet Meropenem [Merrem] 1 gm IV BID #22 vial - Diet Type: Geriatric Texture: Regular Liquids: Thin May have monthly special meal: Yes - Therapies | Activity Therapy: Evaluation | Treat if indicated: PT, OT Rehabilitation Potential: Maximize functional status Activity: Activity as Tolerated"
--- NOTE | 2020-01-07 08:40 | DISCHARGE SUMMARY ---
Discharge Summary Admit Date: 01/03/20 Discharge Date: 01/07/20 Discharging Provider: Armaan Argueta Primary Care Provider: Dr. Cosme Condition at Discharge: Stable Discharge Disposition: SNF DC/Xfer Discharge Facility Name: [facility] - DIAGNOSES Admission Diagnoses: (1) Fall (2) UTI (urinary tract infection) (3) AMS (altered mental status) (4) Atrial fibrillation (5) HTN (hypertension) (6) COPD with asthma (7) Advanced dementia (8) Hypothyroidism (9) GORDON (acute kidney injury) Discharge Diagnoses with Status of Each Condition: (1) UTI (urinary tract infection) Patient has ESBL infection, advise patient have 11 days for intravenous antibiotics which pt had total 14 days of IV of antibiotics, patient is to D/C to [facility] for continue to have intravenous antibiotics with PICC line. (2) Fall Patient have a fall in the home, imaging studies did not show acute fracture, patient have PT/OT evaluation and treatment, patient DC to SNF, (3) AMS (altered mental status) resolved as her baseline (4) Atrial fibrillation chronic/stable (5) HTN (hypertension) chronic/stable (6) COPD with asthma chronic/stable (7) Advanced dementia chronic/stable (8) Hypothyroidism chronic/stable (9) GORDON (acute kidney injury) improved/resolved GORDON, creatinine return to her baseline - HPI History of Present Illness: This is a 79-year-old female with a past medical history significant for dementia with behavioral disturbances, atrial fibrillation on Eliquis, coronary artery disease, recurrent UTIs, kidney stone, HTN, hypothyroidism, COPD/Asthma, who presents today from [facility] due to fall. pt was found on her floor at 4:30 AM this morning by staff. Patient is brought to the emergency department by EMS. The patient cannot tell how she fell and thinks that she may have "slipped on water" due to her medical conditions with baseline of advance dementia. She report that her left shoulder and left hip are hurting. She report she hit her head and report she has neck pain, then she has "lots of pain". CT of head, neck, left shoulder, left hip all on unremarkable for fracture. Route lab test reveals pt has elevated WBC, UTI analysis indicate pt has UTI. Pt Patient is afebrile, otherwise patient is hemodynamically stable. - HOSPITAL COURSE Hospital Course: Patient was admitted for evaluation of fall and altered mental status. patient had a fall in [facility], her imaging study show patient has no acute fracture, patient was found to have a UTI, patient was treated with antibiotics, urine culture reveals patient has ESBL infection, patient was treated with antibiotics, patient required 2 weeks of intravenous antibiotics, patient had PICC line, patient was also evaluated and treated by the PT/OT, patient was D/C to SNF care which patient had PICC line and we have total 2 weeks for intravenous antibiotics treatment. hospital detailed is as below (1) UTI (urinary tract infection) Patient has ESBL infection, advise patient have 11 days for intravenous antibiotics which pt had total 14 days of IV of antibiotics, patient is to D/C to [facility] for continue to have intravenous antibiotics with PICC line. (2) Fall Patient have a fall in the home, imaging studies did not show acute fracture, patient have PT/OT evaluation and treatment, patient DC to SNF, (3) AMS (altered mental status) resolved as her baseline (4) Atrial fibrillation chronic/stable (5) HTN (hypertension) chronic/stable (6) COPD with asthma chronic/stable (7) Advanced dementia chronic/stable (8) Hypothyroidism chronic/stable (9) GORDON (acute kidney injury) improved/resolved GORDON, creatinine return to her baseline - ALLERGIES Allergies/Adverse Reactions: Allergies Allergy/AdvReac Type Severity Reaction Status Date / Time adhesive Allergy Unknown Verified 01/03/20 05:32 alendronate sodium Allergy Unknown Verified 01/03/20 05:32 cephalexin Allergy Unknown Verified 01/03/20 05:32 chlorhexidine Allergy Unknown Verified 01/03/20 05:32 ciprofloxacin [From Cipro] Allergy Unknown Verified 01/03/20 05:32 erythromycin base Allergy Unknown Verified 01/03/20 05:32 ether Allergy Unknown Verified 01/03/20 05:32 fentanyl Allergy Unknown Verified 01/03/20 05:32 hydromorphone Allergy Unknown Verified 01/03/20 05:32 Iodinated Contrast Media Allergy Unknown Verified 01/03/20 05:32 methadone Allergy Unknown Verified 01/03/20 05:32 nitrofurantoin Allergy Unknown Verified 01/03/20 05:32 Penicillins Allergy Unknown Verified 01/03/20 05:32 strawberry Allergy Unknown Verified 01/03/20 05:32 Sulfa (Sulfonamide Allergy Unknown Verified 05/29/20 05:32 Antibiotics) zolpidem Allergy Unknown Verified 01/03/20 05:32 streptomycin AdvReac Unknown Verified 01/03/20 05:32 - MEDICATIONS Home Medications: Ambulatory Orders Medication Instructions Recorded Confirmed Acetaminophen [Tylenol] 650 mg PO Q6H PRN 05/29/19 01/03/20 Apixaban [Eliquis] 5 mg PO BID 05/29/19 01/03/20 Budesonide/Formoterol Fumarate 2 puffs INH BID 05/29/19 01/03/20 [Symbicort 160-4.5 Mcg Inhaler] Famotidine 20 mg PO BID 05/29/19 01/03/20 Levothyroxine [Synthroid] 25 mcg PO DAILY 05/29/19 01/03/20 Metoprolol Succinate 25 mg PO DAILY 05/29/19 01/03/20 Oxybutynin Chloride [Ditropan Xl] 10 mg PO DAILY 05/29/19 01/03/20 Pregabalin 75 mg PO BID 05/29/19 01/03/20 Sennosides [Senna Laxative] 8.6 mg PO BID PRN 05/29/19 01/03/20 Simvastatin 40 mg PO QPM 05/29/19 01/03/20 Umeclidinium S[place]ent [Incruse 1 puffs INH DAILY 05/29/19 01/03/20 Ellipta] Venlafaxine HCl [Venlafaxine HCl 3 tab PO DAILY 05/29/19 01/03/20 ER] haloperidoL [Haldol] 2 mg PO Q8H PRN #60 tablet 07/01/19 01/03/20 Aspirin 81 mg PO MOWEFR 09/10/19 01/03/20 LORazepam [Ativan] 0.5 mg PO Q4H PRN 09/10/19 01/03/20 Albuterol Sulf [Ventolin Hfa 1 - 2 puffs INH Q4H PRN 10/24/19 01/03/20 Inhaler] risperiDONE [RisperDAL] 0.25 mg PO QPM 10/24/19 01/03/20 Ferrous Sulfate 325 mg PO DAILY #15 tablet 01/07/20 Meropenem [Merrem] 1 gm IV BID #22 vial 01/07/20 - PHYSICAL EXAM AT DISCHARGE General Appearance: positive: No acute distress, Alert. negative: Lethargic Eyes Bilateral: positive: Normal inspection, PERRL, No lid inflammation ENT: positive: ENT inspection nml, Pharynx nml, No signs of dehydration. negative: Purulent nasal drainage, Dry mucous membranes Neck: positive: Nml inspection, Thyroid nml, No JVD, Trachea midline. negative: Thyromegaly, Stiff neck, Tracheal deviation Respiratory: positive: Chest non-tender, No respiratory distress, Breath sounds nml. negative: Wheezes, Rales, Rhonchi Cardiovascular: positive: No murmur, No gallop, Irregularly irregular. neg ative: Tachycardia, Bradycardia, Systolic murmur, Diastolic murmur Peripheral Pulses: positive: 2+ Abdomen: positive: Non-tender, No organomegaly, Nml bowel sounds, No distention. negative: Tenderness, Guarding, Rebound Back: positive: Nml inspection. negative: CVA tenderness (R), CVA tenderness (L) Skin: positive: Color nml, No rash, Warm, Dry. negative: Cyanosis, Diaphoresis, Pallor Extremities: positive: Non-tender, Nml appearance. negative: Calf tenderness, Criselda's sign/cords Neurologic/Psychiatric: positive: Motor nml, Sensation nml, Disoriented to time. negative: Disoriented to person, Disoriented to place, Weakness, Sensory loss, Facial droop, Slurred/abnml speech - LABS Result Diagrams: 01/07/20 05:02 01/07/20 05:02 - FOLLOW UP Follow Up: pt still has 11 days remain of IV antibiotic for ESBL UTI infection, advise continue IV antibiotics Meropenem in nurse home [facility] - TIME SPENT Time Spent in Discharge (Minutes): 30
[2020-01-07] MEDS: polyethylene glycoL 3350 17 GM PACKET PO SCH (08:58)
[2020-01-07] MEDS: DOCUSATE SODIUM 250 MG CAPSULE PO SCH (08:59)
[2020-01-07] MEDS: PREGABALIN 25 MG CAPSULE PO SCH (08:59)
[2020-01-07] MEDS: VENLAFAXINE ER 75 MG CAPSULE PO SCH (08:59)
[2020-01-07] MEDS: FERROUS SULFATE 325 MG TABLET PO SCH (08:59)
[2020-01-07] MEDS: FAMOTIDINE 20 MG TABLET PO SCH (08:59)
[2020-01-07] MEDS: OXYBUTYNIN 5MG TABLET PO SCH (09:00)
[2020-01-07] MEDS: APIXABAN 5 MG TABLET PO SCH (09:00)
[2020-01-07] MEDS ORDERED: ASCORBIC ACID CHEW 500 MG TABLET PO SCH (09:00)
[2020-01-07] MEDS: ACETAMINOPHEN 325 MG TABLET PO PRN (09:00)
[2020-01-07] MEDS: MEROPENEM 1 GM in SODIUM CHLORIDE 0.9% MINIBAG 100 ML IV SCH (09:05)
--- NOTE | 2020-01-07 15:03 | XRAY Report ---
Reason: picc line placement Procedure Date: 01/07/2020 Accession Number: [id number] / [id number] Procedure: XR - Chest for Line Placement CPT Code: Final Report FULL RESULT: PROCEDURE: Chest for Line Placement INDICATIONS: picc line placement TECHNIQUE: One view of the chest was acquired. COMPARISON: Chest x-ray 10/23/2019. FINDINGS: Surgical changes and devices: There is a new right M a PICC line with the tip extending into the right atrium, approximately 2.5 cm deep to the cavoatrial junction. A left subclavian catheter with the tip extending into the superior vena cava appears stable in position. Postsurgical changes are again noted in the lower cervical spine. Lungs and pleura: There is elevation of the right hemidiaphragm redemonstrated with increased linear opacities in the right lung base likely representing atelectasis. No focal consolidation. No pleural effusions or pneumothorax. Mediastinum: Mediastinal contours appear unchanged. Heart size is normal. Bones and chest wall: No suspicious bony lesions. Overlying soft tissues appear unremarkable. IMPRESSION: 1. New right upper extremity PICC line extends into the right atrium. Recommend withdrawal by approximately 2.5 cm. 2. Linear right basilar opacities likely represent atelectasis. Reviewed by: Isaiah Mccollum MD on 01/07/2020 3:02 PM PDT Approved by: Isaiah Mccollum MD on 01/07/2020 3:02 PM PDT Station ID: [id number]
--- NOTE | 2020-01-07 15:24 | ANESTHESIA PROCEDURE NOTE ---
Anesth Central Line Template - Central Line Central Line Preparation: Consent Obtained Central line type: Single lumen, Other (PICC line 4 fr single lumen) Central line catheter tip site resides: Superior vena cava (SVC) Central line aftercare: Placement confirmed (statlock, trimmed at 38cm, 3 cm exposed), No complications, Bundle checklist complete, Pt tolerated well
[2020-01-07 15:45] VITALS: BP 137/56
== END 2020-01-07 16:13 | DRG 689 ==
LOC: EDUNIT# → ED 05:26 → MS2 13:08 → ED 13:43
PROVIDERS: ADMIT Nurse Practitioner Gerontology; ATTEND Nurse Practitioner Gerontology
PROC: 02H633Z Insertion of Infusion Device into Right Atrium, Percutaneous Approach (ICD-10-PCS; principal; 2020-01-07)
DX: N30.01 Acute cystitis with hematuria (principal); G93.41 Metabolic encephalopathy; I48.20 Chronic atrial fibrillation, unspecified; N17.9 Acute kidney failure, unspecified; F03.91 Unspecified dementia, unspecified severity, with behavioral disturbance; I48.91 Unspecified atrial fibrillation; D50.9 Iron deficiency anemia, unspecified; F03.90 Unspecified dementia, unspecified severity, without behavioral disturbance, psychotic disturbance, mood disturbance, and anxiety; B96.20 Unspecified Escherichia coli [E. coli] as the cause of diseases classified elsewhere; B96.89 Other specified bacterial agents as the cause of diseases classified elsewhere; M25.512 Pain in left shoulder; M25.552 Pain in left hip; R40.1 Stupor; J44.9 Chronic obstructive pulmonary disease, unspecified; I10 Essential (primary) hypertension; E03.9 Hypothyroidism, unspecified; I25.10 Atherosclerotic heart disease of native coronary artery without angina pectoris; R32 Unspecified urinary incontinence; M79.7 Fibromyalgia; Z20.828 Contact with and (suspected) exposure to other viral communicable diseases; Z88.1 Allergy status to other antibiotic agents; Z88.0 Allergy status to penicillin; Z88.2 Allergy status to sulfonamides; Z99.3 Dependence on wheelchair; Z79.01 Long term (current) use of anticoagulants; Z79.51 Long term (current) use of inhaled steroids; Z91.81 History of falling; I25.2 Old myocardial infarction
CPT/HCPCS: 36415; 70450; 71045; 72125; 73030; 73080; 73502; 80048; 80053; 81001; 82550; 82607; 82728; 83540; 83615; 83690; 83735; 84443; 84466; 85025; 85045; 85610; 87077; 87086; 87181; 90471; 90715; 94640; 96361; 96365; 97162; 97166; 97530; 99285; A9270; C1751; J2185; J7626; Q0162; U0004; 81003; 81599